=== PATIENT | male | born 1945 | race Caucasian/White ===

== ENCOUNTER → 2016-06-05 | Outpatient (CLI) | payer MEDICARE, BC | LOC: LAB 09:57 | PROVIDERS: ATTEND Radiology Radiation Oncology | DX: C61 Malignant neoplasm of prostate (principal); R97.20 Elevated prostate specific antigen [PSA] | CPT/HCPCS: 36415; 84153 ==

== ENCOUNTER → 2016-08-25 | Outpatient (CLI) | payer MEDICARE, BC | LOC: LAB 10:42 | PROVIDERS: ATTEND Radiology Radiation Oncology | DX: C61 Malignant neoplasm of prostate (principal); R97.20 Elevated prostate specific antigen [PSA] | CPT/HCPCS: 36415; 84153 ==

== ENCOUNTER → 2016-11-23 | Outpatient (CLI) | payer MEDICARE, BC | LOC: LAB 10:27 | PROVIDERS: ATTEND Radiology Radiation Oncology | DX: C61 Malignant neoplasm of prostate (principal); R97.20 Elevated prostate specific antigen [PSA] | CPT/HCPCS: 36415; 84153 ==

== ENCOUNTER → 2017-03-03 | Outpatient (CLI) | payer MEDICARE, BC | LOC: LAB 10:33 | PROVIDERS: ATTEND Radiology Radiation Oncology | DX: C61 Malignant neoplasm of prostate (principal); R97.20 Elevated prostate specific antigen [PSA] | CPT/HCPCS: 36415; 84153 ==

== ENCOUNTER → 2017-05-31 | Outpatient (CLI) | payer MEDICARE, BC | LOC: LAB 10:04 | PROVIDERS: ATTEND Radiology Radiation Oncology | DX: C61 Malignant neoplasm of prostate (principal) | CPT/HCPCS: 36415; 84153 ==

== ENCOUNTER → 2017-06-24 | Outpatient (CLI) | payer MEDICARE, BC ==
--- NOTE | 2017-06-25 18:34 | WOMENS IMAGING REPORT ---
EXAM DESCRIPTION: 3D DX MAMMO BILAT; U/S BREAST UNILAT LIMITED COMPLETED DATE/TIME: 06/24/2017 9:27 am; 06/24/2017 10:06 am REASON FOR STUDY: MASTODYNIA; LEFT BREAST; N64.4 C61 MALIGNANT NEOPLASM OF PROSTATE N64.4 MASTODYN IA COMPARISON: None. TECHNIQUE: Standard craniocaudal and mediolateral oblique views of each breast recorded using digita l acquisition and breast tomosynthesis. Additional left male breast 90 mediolateral view, exaggerated craniocaudad view, and cone compressio n retroareolar region in the CC and MLO orientations. Left breast ultrasound was performed with comparison right male breast imaging with ultrasound LIMITATIONS: None. FINDINGS: RIGHT BREAST MASSES: No suspicious masses. CALCIFICATIONS: No new or suspicious calcifications. ARCHITECTURAL DISTORTION: None. DEVELOPING DENSITY: None. ASYMMETRY: None noted. OTHER: Mild gynecomastia LEFT BREAST MASSES: No suspicious masses. CALCIFICATIONS: No new or suspicious calcifications. ARCHITECTURAL DISTORTION: None. DEVELOPING DENSITY: None. ASYMMETRY: None noted. OTHER: Mild gynecomastia Read with the assistance of CAD: .[facility] - R2 Cenova Version 1.3 .[facility] Imaging - R2 Cenova Version 1.3 .[facility] Imaging - R2 Cenova Version 2.4 .[facility] - R2 Cenova Version 2.4 .[facility] - R2 Podiatry Assistant Version 9.2 Left breast ultrasound: Ultrasound of the left male breast was performed. There is mild left retroa reolar gynecomastia. Comparison ultrasound of the right male breast demonstrates mild right gynecoma stia. IMPRESSION: Bilateral gynecomastia on mammography/tomosynthesis and ultrasound. No worrisome featur es BREAST DENSITY: a. The breasts are almost entirely fatty. BIRAD: 2 Benign findings. RECOMMENDATION: RECOMMENDED FOLLOW UP: Clinical followup for bilateral benign-appearing gynecomastia SPECIFIC INTERVENTION/IMAGING/CONSULTATION RECOMMENDED:No additional intervention/ imaging/consultati on needed at this time. COMMUNICATION:Patient notified by letter COMMENT: The patient has been notified of the results by letter per MQSA requirements. Additional no tification policies are in place for contacting patient with suspicious or incomplete findings. Quality ID #225: The [employer] recommends an annual screening mammogram for women aged 40 years or over. This facility utilizes a reminder system to ensure that all patients receive reminder letters, and/or direct phone calls for appointments. This includes reminders for routine scr eening mammograms, diagnostic mammograms, or other Breast Imaging Interventions when appropriate. Th is patient will be placed in the appropriate reminder system. The [employer] (ACR) has developed recommendations for screening MRI of the breast s in certain patient populations, to be used in conjunction with mammography. Breast MRI surveillanc e may be appropriate for women with more than 20% lifetime risk of developing breast cancer as deter mined by genetic testing, significant family history of the disease, or history of mantle radiation f or Hodgkins Disease. ACR Practice Guidelines 2008. DBT Technology DBT is a type of tomographic mammography. With conventional mammography, overlapping breast tissue ma y make lesions difficult to detect, even with good compression. DBT uses an x-ray tube that rotates a round the breast, taking images at different angles. These images are then combined to create thin sl ices of the breast that the radiologist can view as a 3D reconstruction. The [place] unit can perform full-field digital mammograms (2D imaging); or DBT (3D imaging); or both, in a combination mode that quickly performs both the mammogram and the tomosynthesis scan while the breast is still compressed. PQRS 6045F: Fluoroscopic imaging is not utilized for breast tomosynthesis. TECHNICAL DOCUMENTATION: FINDING NUMBER: (1) ASSESSMENT: (1) JOB ID: [id number] [employer]- All Rights Reserved Reading location - IP/workstation name: [facility]
--- NOTE | 2017-06-25 18:34 | WOMENS IMAGING REPORT ---
EXAM DESCRIPTION: 3D DX MAMMO BILAT; U/S BREAST UNILAT LIMITED COMPLETED DATE/TIME: 06/24/2017 9:27 am; 06/24/2017 10:06 am REASON FOR STUDY: MASTODYNIA; LEFT BREAST; N64.4 C61 MALIGNANT NEOPLASM OF PROSTATE N64.4 MASTODYN IA COMPARISON: None. TECHNIQUE: Standard craniocaudal and mediolateral oblique views of each breast recorded using digita l acquisition and breast tomosynthesis. Additional left male breast 90 mediolateral view, exaggerated craniocaudad view, and cone compressio n retroareolar region in the CC and MLO orientations. Left breast ultrasound was performed with comparison right male breast imaging with ultrasound LIMITATIONS: None. FINDINGS: RIGHT BREAST MASSES: No suspicious masses. CALCIFICATIONS: No new or suspicious calcifications. ARCHITECTURAL DISTORTION: None. DEVELOPING DENSITY: None. ASYMMETRY: None noted. OTHER: Mild gynecomastia LEFT BREAST MASSES: No suspicious masses. CALCIFICATIONS: No new or suspicious calcifications. ARCHITECTURAL DISTORTION: None. DEVELOPING DENSITY: None. ASYMMETRY: None noted. OTHER: Mild gynecomastia Read with the assistance of CAD: .[facility] - R2 Cenova Version 1.3 .[facility] Imaging - R2 Cenova Version 1.3 .[facility] Imaging - R2 Cenova Version 2.4 .[facility] - R2 Cenova Version 2.4 .[facility] - R2 Is Technician Version 9.2 Left breast ultrasound: Ultrasound of the left male breast was performed. There is mild left retroa reolar gynecomastia. Comparison ultrasound of the right male breast demonstrates mild right gynecoma stia. IMPRESSION: Bilateral gynecomastia on mammography/tomosynthesis and ultrasound. No worrisome featur es BREAST DENSITY: a. The breasts are almost entirely fatty. BIRAD: 2 Benign findings. RECOMMENDATION: RECOMMENDED FOLLOW UP: Clinical followup for bilateral benign-appearing gynecomastia SPECIFIC INTERVENTION/IMAGING/CONSULTATION RECOMMENDED:No additional intervention/ imaging/consultati on needed at this time. COMMUNICATION:Patient notified by letter COMMENT: The patient has been notified of the results by letter per MQSA requirements. Additional no tification policies are in place for contacting patient with suspicious or incomplete findings. Quality ID #[id number]: The [employer] recommends an annual screening mammogram for women aged 40 years or over. This facility utilizes a reminder system to ensure that all patients receive reminder letters, and/or direct phone calls for appointments. This includes reminders for routine scr eening mammograms, diagnostic mammograms, or other Breast Imaging Interventions when appropriate. Th is patient will be placed in the appropriate reminder system. The [employer] (ACR) has developed recommendations for screening MRI of the breast s in certain patient populations, to be used in conjunction with mammography. Breast MRI surveillanc e may be appropriate for women with more than 20% lifetime risk of developing breast cancer as deter mined by genetic testing, significant family history of the disease, or history of mantle radiation f or Hodgkins Disease. ACR Practice Guidelines 2008. DBT Technology DBT is a type of tomographic mammography. With conventional mammography, overlapping breast tissue ma y make lesions difficult to detect, even with good compression. DBT uses an x-ray tube that rotates a round the breast, taking images at different angles. These images are then combined to create thin sl ices of the breast that the radiologist can view as a 3D reconstruction. The [employer] unit can perform full-field digital mammograms (2D imaging); or DBT (3D imaging); or both, in a combination mode that quickly performs both the mammogram and the tomosynthesis scan while the breast is still compressed. PQRS 6045F: Fluoroscopic imaging is not utilized for breast tomosynthesis. TECHNICAL DOCUMENTATION: FINDING NUMBER: (1) ASSESSMENT: (1) JOB ID: [id number] [employer]- All Rights Reserved Reading location - IP/workstation name: [facility]
== END ==
LOC: WI 09:03
PROVIDERS: ATTEND Radiology Radiation Oncology
DX: N64.4 Mastodynia (principal); N62 Hypertrophy of breast; C61 Malignant neoplasm of prostate
CPT/HCPCS: 76642; 77066; G0279; 77062

== ENCOUNTER → 2017-10-05 | Outpatient (CLI) | payer MEDICARE, BC | LOC: LAB 08:20 | PROVIDERS: ATTEND Radiology Radiation Oncology | DX: C61 Malignant neoplasm of prostate (principal); R97.20 Elevated prostate specific antigen [PSA] | CPT/HCPCS: 36415; 84153 ==

== ENCOUNTER 2017-11-16 14:12 | Inpatient (IN) | payer MEDICARE, BC ==
[2017-11-16] MEDS ORDERED: NORMAL SALINE 1000 ML 1,000 ML IV ONE ×2 (14:40→18:50)
--- NOTE | 2017-11-16 14:45 | ER Document Report ---
ED Medical Screen (RME) - General Chief Complaint: Nausea/Vomiting/Diarrhea Stated Complaint: NAUSEA, DIARRHEA Time Seen by Provider: 11/16/17 14:38 TRAVEL OUTSIDE OF THE [place]. IN LAST 30 DAYS: No - HPI Notes: 11/16/17 14:44 Patient ate mashed potatoes and other foods approximate 48 hours ago that did not taste well now having nausea vomiting diarrhea patient with a fever in triage slightly tachycardic with a low blood pressure otherwise patient alert and oriented 3 shows no signs of obvious distress complains of no pain - Related Data Allergies/Adverse Reactions: No Known Allergies Allergy (Verified 11/16/17 14:31) Past Medical History - Social History Chew tobacco use (# tins/day): No Frequency of alcohol use: None Drug Abuse: None Renal/ Medical History: Denies: Hx Peritoneal Dialysis Review of Systems - Review of Systems Constitutional: Fever - Nausea vomiting diarrhea Physical Exam - Vital signs Vitals: Temp Pulse Resp BP Pulse Ox 101.2 F H 107 H 16 99/55 L 95 11/16/17 14:22 11/16/17 14:22 11/16/17 14:22 11/16/17 14:22 11/16/17 14:22 - Respiratory Respiratory status: No respiratory distress Chest status: Nontender Breath sounds: Normal Chest palpation: Normal - Abdominal Inspection: Normal Distension: No distension Bowel sounds: Normal Tenderness: Nontender Course - Vital Signs Vital signs: Temp Pulse Resp BP Pulse Ox 101.2 F H 107 H 16 99/55 L 95 11/16/17 14:22 11/16/17 14:22 11/16/17 14:22 11/16/17 14:22 11/16/17 14:22 Doctor's Discharge - Discharge Referrals: CAIN KAY DO [Primary Care Provider] - Follow up as needed
[2017-11-16 15:18] LABS: VENOUS BLOOD HCO3 23.4 mmol/L (20-32); VENOUS BLOOD PCO2 35.1 mmHg (35-63); VENOUS BLOOD PH 7.44 (7.30-7.42)
[2017-11-16 15:21] LABS: HEMATOCRIT 36.7 % (37.9-51.0); HEMOGLOBIN 12.9 g/dL (13.5-17.0); MEAN CORPUSCULAR HEMOGLOBIN 32.8 pg (27.0-33.4); MEAN CORPUSCULAR HGB CONC 35.2 g/dL (32.0-36.0); MEAN CORPUSCULAR VOLUME 93 fl (80-97); PLATELET COUNT 115 10^3/uL (150-450); RED BLOOD COUNT 3.93 10^6/uL (4.35-5.55); RED CELL DISTRIBUTION WIDTH 13.5 % (11.5-14.0); WHITE BLOOD COUNT 9.6 10^3/uL (4.0-10.5)
[2017-11-16 15:23] LABS: INTERNATIONAL RATION (INR) 1.12
--- NOTE | 2017-11-16 15:23 | RADIOLOGY REPORT (SQ) ---
EXAM DESCRIPTION: CHEST 2 VIEWS COMPLETED DATE/TIME: 11/16/2017 3:12 pm REASON FOR STUDY: FEVER COMPARISON: None. EXAM PARAMETERS: NUMBER OF VIEWS: two views TECHNIQUE: Digital Frontal and Lateral radiographic views of the chest acquired. RADIATION DOSE: NA LIMITATIONS: none FINDINGS: LUNGS AND PLEURA: No opacities, masses or pneumothorax. No pleural effusion. MEDIASTINUM AND HILAR STRUCTURES: No masses or contour abnormalities. HEART AND VASCULAR STRUCTURES: Heart normal size. No evidence for failure. BONES: No acute findings. HARDWARE: None in the chest. OTHER: No other significant finding. IMPRESSION: NO ACUTE RADIOGRAPHIC FINDING IN THE CHEST. TECHNICAL DOCUMENTATION: JOB ID: [id number] [employer]- All Rights Reserved Reading location - IP/workstation name: [email or web address]
[2017-11-16 15:44] LABS: ALANINE AMINOTRANSFERASE 19 U/L (21-72); ALBUMIN 3.6 g/dL (3.5-5.0); ALKALINE PHOSPHATASE 55 U/L (38-126); ANION GAP 13 (5-19); ASPARTATE AMINO TRANSFERASE 18 U/L (17-59); BILIRUBIN,DIRECT 0.2 mg/dL (0.0-0.4); BILIRUBIN,TOTAL 0.7 mg/dL (0.2-1.3); BLOOD UREA NITROGEN 23 mg/dL (7-20); CALCIUM 8.4 mg/dL (8.4-10.2); CARBON DIOXIDE 22 mmol/L (22-30); CHLORIDE 102 mmol/L (98-107); GLUCOSE 121 mg/dL (75-110); POTASSIUM 3.4 mmol/L (3.6-5.0); TOTAL PROTEIN 6.7 g/dL (6.3-8.2)
[2017-11-16 16:03] LABS: ABSOLUTE LYMPHOCYTES# (MANUAL) 0.3 10^3/uL (0.5-4.7); ABSOLUTE MONOCYTES # (MANUAL) 0.6 10^3/uL (0.1-1.4); ABSOLUTE NEUTROPHILS# (MANUAL) 8.7 10^3/uL (1.7-8.2); BAND NEUTROPHILS % (MANUAL) 1 % (3-5); BASOPHILS % (MANUAL) 0 % (0-2); EOSINOPHILS % (MANUAL) 0 % (0-6); LYMPHOCYTES % (MANUAL) 3 % (13-45); MONOCYTES % (MANUAL) 6 % (3-13); PLATELET COMMENT DECREASED; SEGMENTED NEUTROPHILS % (MAN) 90 % (42-78); TOTAL CELLS COUNTED 100
[2017-11-16] MEDS ORDERED: ACETAMINOPHEN 325 MG TABLET PO ONE ×2 (16:34→23:20)
[2017-11-16] MEDS ORDERED: RINGERS SOLUTION,LACTATED 1,000 ML IV ONE (16:34)
[2017-11-16] MEDS ORDERED: ONDANSETRON HCL INJ/PF 4 MG/2 ML SDV IV ONE (16:34)
--- NOTE | 2017-11-16 16:34 | ER Document Report ---
ED General - General Mode of Arrival: Ambulatory Information source: Patient TRAVEL OUTSIDE OF THE U.[place]. IN LAST 30 DAYS: No <CHUCHO MACEDO - Last Filed: 11/16/17 17:24> <PEPITO GUERRA - Last Filed: 11/16/17 20:44> <CARMINE ONEIL - Last Filed: 11/16/17 23:18> <RADHA AYALA - Last Filed: 11/17/17 03:29> - General Chief Complaint: Nausea/Vomiting/Diarrhea Stated Complaint: NAUSEA, DIARRHEA Time Seen by Provider: 11/16/17 14:38 Notes: 72-year-old male that presents to the emergency department today with complaints of chills, fevers, and vomiting. Patient states he vomited his dinner up last night, ate breakfast today without any abnormalities, and then vomited again today when eating lunch around 1230. Patient states he takes no medicine, his only past medical history is prostate cancer which he was radiated with radium implants and external beam radiation which cured the malignancy to his knowledge. Patient has had associated diarrhea and chills. ( CHUCHO MACEDO) - Related Data Allergies/Adverse Reactions: No Known Allergies Allergy (Verified 11/16/17 14:31) Past Medical History - General Information source: Patient - Social History Smoking Status: Never Smoker Cigarette use (# per day): No Chew tobacco use (# tins/day): No Frequency of alcohol use: None Drug Abuse: None Lives with: Family Family History: Reviewed & Not Pertinent Patient has suicidal ideation: No Patient has homicidal ideation: No - Medical History Medical History: Negative Surgical Hx: Negative <CHUCHO MACEDO - Last Filed: 11/16/17 17:24> Review of Systems - Review of Systems Constitutional: See HPI, Chills, Fever EENT: No symptoms reported Cardiovascular: No symptoms reported Respiratory: No symptoms reported Gastrointestinal: See HPI, Diarrhea, Vomiting Genitourinary: No symptoms reported Male Genitourinary: No symptoms reported Musculoskeletal: No symptoms reported Skin: No symptoms reported Hematologic/Lymphatic: No symptoms reported Neurological/Psychological: No symptoms reported -: Yes All other systems reviewed and negative <CHUCHO MACEDO - Last Filed: 11/16/17 17:24> Physical Exam <CHUCHO MACEDO - Last Filed: 11/16/17 17:24> <PEPITO GUERRA - Last Filed: 11/16/17 20:44> <CARMINE ONEIL - Last Filed: 11/16/17 23:18> <RADHA AYALA - Last Filed: 11/17/17 03:29> - Vital signs Vitals: Temp Pulse Resp BP Pulse Ox 101.2 F H 107 H 16 99/55 L 95 11/16/17 14:22 11/16/17 14:22 11/16/17 14:22 11/16/17 14:22 11/16/17 14:22 - Notes Notes: Physical Exam: General: Alert, appears well. HEENT: Normocephalic. Atraumatic. PERRL. Extraocular movements intact. Oropharynx clear. Neck: Supple. Non-tender. Respiratory: No respiratory distress. Clear and equal breath sounds bilaterally. Cardiovascular: Regular rate and rhythm. Abdominal: Normal Inspection. Non-tender. No distension. Normal Bowel Sounds. Back: Non-tender. No deformity or step off. Extremities: Moves all four extremities. Upper extremities: Normal inspection. Normal ROM. Lower extremities: Normal inspection. No edema. Normal ROM. Neurological: Normal cognition. AAOx4. Normal speech. Psychological: Normal affect. Normal Mood. Skin: Very warm to the touch. Dry. Normal color. (CHUCHO MACEDO) Course - Laboratory Result Diagrams: 11/16/17 15:00 11/16/17 15:00 <CHUCHO MACEDO - Last Filed: 11/16/17 17:24> - Laboratory Result Diagrams: 11/16/17 15:00 11/16/17 15:00 - EKG Interpretation by [place] EKG shows normal: Sinus rhythm, Aragon, Intervals, QRS Complexes. abnormal: ST-T Waves - Nonspecific inferior T abnormalities Rate: Normal Rhythm: NSR - Transfer of Care Care transferred to following provider: Dr. Ayala <PEPITO GUERRA - Last Filed: 11/16/17 20:44> - Laboratory Result Diagrams: 11/16/17 15:00 11/16/17 15:00 <CARMINE ONEIL - Last Filed: 11/16/17 23:18> - Laboratory Result Diagrams: 11/16/17 15:00 11/16/17 15:00 <RADHA AYALA - Last Filed: 11/17/17 03:29> - Re-evaluation Re-evalutation: 11/16/17 23:13 Rechecked Pt. He denies feeling any better. Informed pt that his labs and urines looked well enough to discharge home but pt does not feel comfortable with going home tonight. Will repeat temperature and order a CT. 11/16/17 23:18 (CARMINE ONEIL) 11/17/17 00:[address] is consistent with colitis. Patient's fever on recheck was 102.2. He is given Tylenol is feeling better. Given the patient's tachycardia, hypotension on presentation, and continued symptoms, he will be referred to the hospitalist service for admission. Patient is very uncomfortable going home as he is still really not feeling very good Started on Cipro Flagyl for colitis. Stable at time of admission. (RADHA AYALA) - Vital Signs Vital signs: Temp Pulse Resp BP Pulse Ox 102.2 F H 107 H 23 H 118/67 96 11/16/17 23:21 11/16/17 14:22 11/16/17 21:01 11/16/17 21:01 11/16/17 21:01 - Laboratory Laboratory results interpreted by me: 11/16/17 11/16/17 11/16/17 15:00 15:00 15:00 RBC 3.93 L Hgb 12.9 L Hct 36.7 L Plt Count 115 L Seg Neuts % (Manual) 90 H Band Neutrophils % 1 L Lymphocytes % (Manual) 3 L Abs Neuts (Manual) 8.7 H Abs Lymphs (Manual) 0.3 L VBG pH 7.44 H Potassium 3.4 L BUN 23 H Creatinine 1.28 H Est GFR (Non-Af Amer) 55 L Glucose 121 H ALT 19 L Urine Protein 11/16/17 20:51 RBC Hgb Hct Plt Count Seg Neuts % (Manual) Band Neutrophils % Lymphocytes % (Manual) Abs Neuts (Manual) Abs Lymphs (Manual) VBG pH Potassium BUN Creatinine Est GFR (Non-Af Amer) Glucose ALT Urine Protein 30 H - Transfer of Care Notes: 11/16/17 20:27 Pending urinalysis and stool for WBCs. Patient will continue receiving IV hydration. (PEPITO GUERRA) Discharge <CHUCHO MACEDO - Last Filed: 11/16/17 17:24> <PEPITO GUERRA - Last Filed: 11/16/17 20:44> <CARMINE ONEIL - Last Filed: 11/16/17 23:18> - Discharge Admitting Provider: [facility] Unit Admitted: Medical Floor <RADHA AYALA - Last Filed: 11/17/17 03:29> - Discharge Clinical Impression: Nausea, vomiting and diarrhea, Dehydration, Colitis Fever Qualifiers: Fever type: unspecified Qualified Code(s): R50.9 - Fever, unspecified Condition: Stable Disposition: ADMITTED INPATIENT Scribe Attestation: 11/16/17 20:27 I personally performed the services described in the documentation, reviewed and edited the documentation which was dictated to the scribe in my presence, and it accurately records my words and actions. (PEPITO GUERRA) 11/17/17 03:29 I personally performed the services described in the documentation, reviewed and edited the documentation which was dictated to the scribe in my presence, and it accurately records my words and actions. (RADHA AYALA) Scribe Documentation - Scribe Written by Scrreee:: Cory De Jesus, 11/16/2017 1734 acting as scribe for :: Zoie <CHUCHO MACEDO - Last Filed: 11/16/17 17:24>
--- NOTE | 2017-11-16 18:43 | EKG REPORT ---
SEVERITY:- ABNORMAL ECG - SINUS RHYTHM NONSPECIFIC T ABNORMALITIES, INFERIOR LEADS : Confirmed by: Jeff Cruz MD 16-Nov-2017 18:42:50
[2017-11-16] MEDS ORDERED: DEXTROSE 5%-LACTATED RINGERS 1,000 ML IV ONE (19:17)
[2017-11-16 21:20] LABS: APPEARANCE,URINE SLIGHTLY-CLOUDY; BILIRUBIN,URINE NEGATIVE (NEGATIVE); COLOR,URINE YELLOW; GLUCOSE, URINE NEGATIVE (NEGATIVE); KETONES,URINE NEGATIVE (NEGATIVE); LEUKOCYTE ESTERASE,URINE NEGATIVE (NEGATIVE); NITRITE,URINE NEGATIVE (NEGATIVE); PROTEIN,URINE 30 mg/dL (NEGATIVE); UROBILINOGEN,URINE NEGATIVE mg/dL (<2.0)
--- NOTE | 2017-11-16 23:51 | RADIOLOGY REPORT (SQ) ---
EXAM DESCRIPTION: CT ABDOMEN PELVIS WITHOUT IV CONTRAST COMPLETED DATE/TME: 11/16/2017 23:17 CLINICAL HISTORY: 72 years Male, fever, diarrhea Comparison: None. Technique: No contrast. Coronal and sagittal reformat. This exam was performed according to our departmental dose-optimization program, which includes automated exposure control, adjustment of the mA and/or kV according to patient size and/or use of iterative reconstruction technique.[facility]: Dose Right [facility]: CareDose [facility]: Dose Right [facility]: Teradose 4D [facility]: Geron LIMITATIONS: None Findings: Gzfk-kq-hpffhczk diffuse bowel wall thickening of the right, transverse, and left colon. There is mild inflammation of surrounding fat. Moderate vacuum disc desiccation between the L3 and S1 levels, 0.5 cm L5 retrolisthesis, atherosclerosis, cholelithiasis including a 1.0 cm calcified rounded stone at the gallbladder neck., mild bilateral perinephric fat stranding, likely bilateral parapelvic cysts measure up to 2.8 cm on the left, no evidence of appendicitis, appendix not discerned. Right upper scrotal clip. Unenhanced lower thorax, abdominopelvic structures, and musculoskeleton appear otherwise grossly unremarkable. Impression: 1. Moderate colitis. Differential etiologies include infectious, inflammatory, and neoplastic processes. 2. Cholelithiasis including a 1.0 cm stone at the gallbladder neck.
[2017-11-17] MEDS ORDERED: ACETAMINOPHEN 325 MG TABLET PO PRN (00:12)
[2017-11-17] MEDS ORDERED: CIPROFLOXACIN 400 MG/D5W RTU 400 MG/200 ML RTUPB IV ONE (00:12)
[2017-11-17] MEDS ORDERED: METRONIDAZOLE 500 MG/NS RTU 500 MG/100 ML RTUPB IV ONE (00:30)
[2017-11-17] MEDS: NORMAL SALINE 1000 ML 1,000 ML IV PRN ×2 (01:07→12:06)
[2017-11-17] MEDS: METRONIDAZOLE 500 MG TABLET PO SCH ×4 (06:07→23:08)
[2017-11-17] MEDS: HEPARIN SOD (PORCINE) 5,000 UNIT/ML 1 ML SYRINGE SUBCUT SCH ×3 (06:07→21:40)
--- NOTE | 2017-11-17 07:30 | PDOC H&P ---
History of Present Illness Admission Date/PCP: 11/17/17 00:[address] [facility] Patient complains of: Nausea vomiting and abdominal pain History of Present Illness: JOSIAH UPTON is a 72 year old male with past medical history of remote prostate cancer with benign follow-up presents with 24 hours of abdominal pain nausea vomiting and diarrhea. He admits fever of 102. Denies suspect meals, recent travel, infectious contacts and otherwise feels well. In the emergency room he is found to have leukocytosis and a CT abdomen pelvis remarkable for diffuse colitis. He started on IV fluid, symptomatic management, empiric antibiotics and referred to the hospitalist for admission. He denies previous episode or new medications. Social History Information Source: Patient Lives with: Family Smoking Status: Never Smoker Frequency of Alcohol Use: None Drugs: None - Advance Directive Resuscitation Status: Full Code Family History Family History: Arthritis Parental Family History Reviewed: Yes Children Family History Reviewed: Yes Sibling(s) Family History Reviewed.: Yes Medication/Allergy Home Medications: No Home Medications 11/16/17 Allergies/Adverse Reactions: No Known Allergies Allergy (Verified 11/16/17 14:31) Review of Systems Constitutional: ABSENT: chills, fever(s), headache(s), weight gain, weight loss Eyes: ABSENT: visual disturbances Ears: ABSENT: hearing changes Cardiovascular: ABSENT: chest pain, dyspnea on exertion, edema, orthropnea, palpitations Respiratory: ABSENT: cough, hemoptysis Gastrointestinal: ABSENT: abdominal pain, constipation, diarrhea, hematemesis, hematochezia, nausea, vomiting Genitourinary: ABSENT: dysuria, hematuria Musculoskeletal: ABSENT: joint swelling Integumentary: ABSENT: rash, wounds Neurological: ABSENT: abnormal gait, abnormal speech, confusion, dizziness, focal weakness, syncope Psychiatric: ABSENT: anxiety, depression, homidical ideation, suicidal ideation Endocrine: ABSENT: cold intolerance, heat intolerance, polydipsia, polyuria Hematologic/Lymphatic: ABSENT: easy bleeding, easy bruising Physical Exam Vital Signs: Temp Pulse Resp BP Pulse Ox 102.2 F H 107 H 18 112/63 100 11/16/17 23:21 11/16/17 14:22 11/17/17 05:01 11/17/17 05:01 11/17/17 05:01 Intake & Output 11/15/17 11/16/17 11/17/17 11:59 11:59 11:59 Intake Total 800 Balance 800 General appearance: PRESENT: no acute distress, well-developed, well-nourished Head exam: PRESENT: atraumatic, normocephalic Eye exam: PRESENT: conjunctiva pink, EOMI, PERRLA. ABSENT: scleral icterus Ear exam: PRESENT: normal external ear exam Mouth exam: PRESENT: moist, tongue midline Neck exam: ABSENT: carotid bruit, JVD, lymphadenopathy, thyromegaly Respiratory exam: PRESENT: clear to auscultation myron. ABSENT: rales, rhonchi, wheezes Cardiovascular exam: PRESENT: RRR. ABSENT: diastolic murmur, rubs, systolic murmur Pulses: PRESENT: normal dorsalis pedis pul Vascular exam: PRESENT: normal capillary refill GI/Abdominal exam: PRESENT: hyperactive bowel sounds, normal bowel sounds, soft , tenderness. ABSENT: distended, guarding, mass, organolmegaly, rebound Rectal exam: PRESENT: deferred Extremities exam: PRESENT: full ROM. ABSENT: calf tenderness, clubbing, pedal edema Neurological exam: PRESENT: alert, awake, oriented to person, oriented to place , oriented to time, oriented to situation, CN II-XII grossly intact. ABSENT: motor sensory deficit Psychiatric exam: PRESENT: appropriate affect, normal mood. ABSENT: homicidal ideation, suicidal ideation Skin exam: PRESENT: dry, intact, warm. ABSENT: cyanosis, rash Results Impressions: Chest X-Ray 11/16/17 14:39 IMPRESSION: NO ACUTE RADIOGRAPHIC FINDING IN THE CHEST. Assessment & Plan - Diagnosis (1) Colitis Is this a current diagnosis for this admission?: Yes Plan: Unclear cause possibly viral, bowel rest, IV fluids, Flagyl and Cipro. Follow- up stool studies and CBC (2) Dehydration Is this a current diagnosis for this admission?: Yes Plan: IV fluid challenge, orthostatic blood pressures (3) Fever Qualifiers: Fever type: unspecified Qualified Code(s): R50.9 - Fever, unspecified Is this a current diagnosis for this admission?: Yes Plan: Secondary to #1 (4) Nausea, vomiting and diarrhea Is this a current diagnosis for this admission?: Yes Plan: Secondary to #1 - Time Time Spent: 30 to 50 Minutes
[2017-11-17 07:52] LABS: ANION GAP 9 (5-19); BLOOD UREA NITROGEN 15 mg/dL (7-20); CALCIUM 7.9 mg/dL (8.4-10.2); CARBON DIOXIDE 23 mmol/L (22-30); CHLORIDE 107 mmol/L (98-107); GLUCOSE 101 mg/dL (75-110); POTASSIUM 3.6 mmol/L (3.6-5.0)
[2017-11-17 08:09] LABS: ABSOLUTE LYMPHOCYTES (AUTO) 0.5 10^3/uL (0.5-4.7); ABSOLUTE MONOCYTES (AUTO) 0.5 10^3/uL (0.1-1.4); ABSOLUTE NEUT (AUTO) 4.8 10^3/uL (1.7-8.2); BASOPHILS % (AUTO) 0.1 % (0-2); HEMATOCRIT 34.3 % (37.9-51.0); HEMOGLOBIN 12.2 g/dL (13.5-17.0); LYMPHOCYTES % (AUTO) 8.7 % (13-45); MEAN CORPUSCULAR HEMOGLOBIN 33.5 pg (27.0-33.4); MEAN CORPUSCULAR HGB CONC 35.5 g/dL (32.0-36.0); MEAN CORPUSCULAR VOLUME 94 fl (80-97); MONOCYTES % (AUTO) 8.4 % (3-13); RED BLOOD COUNT 3.63 10^6/uL (4.35-5.55); RED CELL DISTRIBUTION WIDTH 13.8 % (11.5-14.0); SEGMENTED NEUTROPHILS % (AUTO) 82.8 % (42-78); TOTAL CELLS COUNTED % (AUTO) 100 %; WHITE BLOOD COUNT 5.8 10^3/uL (4.0-10.5)
[2017-11-17 08:39] LABS: PLATELET COUNT 89 10^3/uL (150-450)
[2017-11-17] MEDS: CIPROFLOXACIN 200 MG/D5W RTU 200 MG/100 ML RTUPB IV SCH ×2 (10:16→21:47)
--- NOTE | 2017-11-17 21:23 | PDOC PROGRESS REPORT ---
Subjective Progress Note for:: 11/17/17 Subjective:: 72-year-old male with a past medical history significant for prostate cancer, presenting with abdominal pain nausea vomiting and diarrhea. He was admitted with a fever of 102. He does describe eating at 2 restaurants recently in the 1 -2 days prior to becoming ill. States that he first became sick to his stomach on Wednesday. States that he had some questionable meatloaf at a diner prior to this. Patient is in pleasant mood today, and describes improvement in his abdominal discomfort. He does describe improvement in his appetite today. We will continue to advance his diet. C. difficile testing came back negative. Stool culture pending at present. He is continued on IV Flagyl and IV Cipro at present. CT scan was consistent with a diffuse colitis, possible infectious etiology. Reason For Visit: NAUSEA VOMITING COLITIS Physical Exam Vital Signs: Temp Pulse Resp BP Pulse Ox 97.9 F 67 16 110/61 98 11/17/17 10:42 11/17/17 10:42 11/17/17 10:42 11/17/17 10:42 11/17/17 10:42 Intake & Output 11/16/17 11/17/17 11/18/17 06:59 06:59 06:59 Intake Total 800 1641 Balance 800 1641 Weight 92.079 kg General appearance: PRESENT: no acute distress, obese. ABSENT: mild distress Head exam: PRESENT: atraumatic, normocephalic Eye exam: PRESENT: EOMI. ABSENT: conjunctival injection, nystagmus Ear exam: PRESENT: normal external ear exam. ABSENT: bleeding Mouth exam: PRESENT: moist, neck supple. ABSENT: dry mucosa Throat exam: ABSENT: post pharyngeal erythema, tonsillar exudate Neck exam: ABSENT: carotid bruit, tenderness, thyromegaly Respiratory exam: ABSENT: accessory muscle use, rales, rhonchi, unlabored, wheezes Cardiovascular exam: PRESENT: RRR, +S1, +S2 Pulses: PRESENT: normal carotid pulses, normal dorsalis pedis pul GI/Abdominal exam: ABSENT: ascites, mass, rigid, tenderness Extremities exam: ABSENT: calf tenderness, joint swelling Musculoskeletal exam: PRESENT: ambulatory, full ROM Neurological exam: PRESENT: alert, awake, oriented to person, oriented to place , oriented to time, oriented to situation, CN II-XII grossly intact Psychiatric exam: ABSENT: agitated, flat affect Focused psych exam: ABSENT: catatonic, paranoid Skin exam: ABSENT: abrasion, mottled Results Laboratory Results: 11/17/17 06:59 11/17/17 06:59 11/17/17 11/17/17 06:59 06:59 WBC 5.8 RBC 3.63 L Hgb 12.2 L Hct 34.3 L MCV 94 MCH 33.5 H MCHC 35.5 RDW 13.8 Plt Count 89 L Seg Neutrophils % 82.8 H Lymphocytes % 8.7 L Monocytes % 8.4 Eosinophils % 0.0 Basophils % 0.1 Absolute Neutrophils 4.8 Absolute Lymphocytes 0.5 Absolute Monocytes 0.5 Absolute Eosinophils 0.0 Absolute Basophils 0.0 Sodium 139.0 Potassium 3.6 Chloride 107 Carbon Dioxide 23 Anion Gap 9 BUN 15 Creatinine 0.97 Est GFR ( Amer) > 60 Est GFR (Non-Af Amer) > 60 Glucose 101 Calcium 7.9 L Impressions: Chest X-Ray 11/16/17 14:39 IMPRESSION: NO ACUTE RADIOGRAPHIC FINDING IN THE CHEST. Assessment & Plan - Diagnosis (1) Colitis Is this a current diagnosis for this admission?: Yes Plan: Back this is secondary to recent food poisoning. CT scan consistent with diffuse colitis picture. Likely infectious etiology. Continue empiric IV Flagyl and Cipro at present. Continue supportive IV fluids. (2) Dehydration Is this a current diagnosis for this admission?: Yes Plan: Continue supportive IV fluids at present. (3) Fever Qualifiers: Fever type: unspecified Qualified Code(s): R50.9 - Fever, unspecified Is this a current diagnosis for this admission?: Yes Plan: Fever improving with empiric antibiotics and tylenol (4) Nausea, vomiting and diarrhea Is this a current diagnosis for this admission?: Yes Plan: prn anti emetics as needed. - Inpatient Certification Based on my medical assessment, after consideration of the patient's comorbidities, presenting symptoms, or acuity I expect that the services needed warrant INPATIENT care.: Yes I certify that my determination is in accordance with my understanding of Medicare's requirements for reasonable and necessary INPATIENT services [42 CFR 412.3e].: Yes Medical Necessity: Need Close Monitoring Due to Risk of Patient Decompensation, Need For IV Fluids
[2017-11-18 05:24] LABS: HEMATOCRIT 30.6 % (37.9-51.0); HEMOGLOBIN 11.1 g/dL (13.5-17.0); MEAN CORPUSCULAR HEMOGLOBIN 33.8 pg (27.0-33.4); MEAN CORPUSCULAR HGB CONC 36.3 g/dL (32.0-36.0); MEAN CORPUSCULAR VOLUME 93 fl (80-97); RED CELL DISTRIBUTION WIDTH 13.5 % (11.5-14.0); WHITE BLOOD COUNT 3.8 10^3/uL (4.0-10.5)
[2017-11-18] MEDS: HEPARIN SOD (PORCINE) 5,000 UNIT/ML 1 ML SYRINGE SUBCUT SCH ×2 (05:36→14:35)
[2017-11-18 05:40] LABS: ALBUMIN 2.6 g/dL (3.5-5.0); ANION GAP 8 (5-19); BLOOD UREA NITROGEN 8 mg/dL (7-20); CARBON DIOXIDE 23 mmol/L (22-30); CHLORIDE 110 mmol/L (98-107); GLUCOSE 94 mg/dL (75-110); PHOSPHORUS 2.3 mg/dL (2.5-4.5); POTASSIUM 3.3 mmol/L (3.6-5.0); SODIUM 140.5 mmol/L (137-145)
[2017-11-18] MEDS: METRONIDAZOLE 500 MG TABLET PO SCH ×2 (05:42→12:08)
[2017-11-18 05:57] LABS: PLATELET COUNT 76 10^3/uL (150-450)
[2017-11-18] MEDS: CIPROFLOXACIN 200 MG/D5W RTU 200 MG/100 ML RTUPB IV SCH (10:20)
[2017-11-18] MEDS ORDERED: POTASSIUM CHLORIDE 10 MEQ CAPSULE.ER PO ONE (14:30)
[2017-11-18 14:47] VITALS: BP 99/55
--- NOTE | 2017-11-19 07:28 | PDOC DISCHARGE SUMMARY ---
General - Admit/Disc Date/PCP Admission Date/Primary Care Provider: 11/17/17 08:00 [facility] Discharge Date: 11/18/17 - Discharge Diagnosis (1) Colitis Is this a current diagnosis for this admission?: Yes Summary: likely bacterial gastroenteritis secondary from recent food poisoning (2) Dehydration Is this a current diagnosis for this admission?: Yes (3) Fever Is this a current diagnosis for this admission?: Yes (4) Nausea, vomiting and diarrhea Is this a current diagnosis for this admission?: Yes - Additional Information Resuscitation Status: Full Code Discharge Diet: As Tolerated Discharge Activity: Activity As Tolerated Prescriptions: Ciprofloxacin HCl [Cipro 500 mg Tablet] 500 mg PO BID 10 Days #20 tablet Metronidazole [Flagyl 500 mg Tablet] 500 mg PO TID 10 Days #30 tablet Home Medications: Ciprofloxacin HCl [Cipro 500 mg Tablet] 500 mg PO BID 10 Days #20 tablet Metronidazole [Flagyl 500 mg Tablet] 500 mg PO TID 10 Days #30 tablet 11/18/17 History of Present Illness History of Present Illness: JOSIAH UPTON is a 72 year old male with past medical history of remote prostate cancer with benign follow-up presents with 24 hours of abdominal pain nausea vomiting and diarrhea. He admits fever of 102. Denies suspect meals, recent travel, infectious contacts and otherwise feels well. In the emergency room he is found to have leukocytosis and a CT abdomen pelvis remarkable for diffuse colitis. He started on IV fluid, symptomatic management, empiric antibiotics and referred to the hospitalist for admission. He denies previous episode or new medications. Hospital Course Hospital Course: Patient was found to have a diffuse colitis on CT abd/pelvis. A 1 cm cholelithiasis was noted at gallbladder neck on CT without exam findings consistent with cholecystitis. He was treated with IVF support and IV flagyl and IV ciprofloxacin. He gradually improved, and was able to restart and tolerate a diet. C diff testing was negative. At the time of discharge, there was no positive finding from his stool culture or blood cultures. It is suspected that he had bacterial gastroenteritis from food poisoning on the evening prior to his symptom development. At that time he described eating meatloaf with a "funny taste." Patient will be given a course of flagyl and cipro to finish in outpatient. Followup with his primary doctor was recommended within the next week. At the time of discharge patient had stable vitals, and was ambulating without difficulty. He was instructed to eat yogurt during his antibiotic regiment. Physical Exam Vital Signs: Temp Pulse Resp BP Pulse Ox 97.7 F 70 16 99/55 L 98 11/18/17 14:45 11/18/17 14:45 11/18/17 14:45 11/18/17 14:45 11/18/17 14:45 Intake & Output 11/17/17 11/18/17 11/19/17 06:59 06:59 06:59 Intake Total 100 Balance 100 General appearance: PRESENT: no acute distress, cooperative Head exam: PRESENT: atraumatic, normocephalic Eye exam: PRESENT: EOMI, PERRLA Ear exam: PRESENT: normal external ear exam. ABSENT: bleeding Mouth exam: PRESENT: moist. ABSENT: dry mucosa Throat exam: ABSENT: tonsillar exudate Neck exam: ABSENT: carotid bruit, JVD GI/Abdominal exam: PRESENT: soft. ABSENT: tenderness Musculoskeletal exam: PRESENT: ambulatory, full ROM Neurological exam: PRESENT: alert, oriented to person, oriented to place, oriented to time, oriented to situation Psychiatric exam: ABSENT: agitated, anxious Focused psych exam: ABSENT: catatonic, paranoid Skin exam: ABSENT: abrasion, pallor Results Laboratory Results: blood cultures x2 no growth urine culture no signficant growth stool culture no growth C diff testing was negative. Impressions: Chest X-Ray 11/16/17 14:39 IMPRESSION: NO ACUTE RADIOGRAPHIC FINDING IN THE CHEST. CT Abd/Pelvis: showing a diffuse colitis, possibly infectious. 1 cm cholelithiasis at gallbladder neck found. Qualifiers - * PATIENT BEING DISCHARGED WITH ANY OF THE FOLLOWING DIAGNOSIS: No Plan Discharge Plan: f/u with his PCP in the next 2 weeks. complete his antibiotic course as instructed Time Spent: Greater than 30 Minutes
== END 2017-11-18 15:42 | disposition home or self-care (01) | DRG 392 ==
LOC: ER 14:12 → EH 11-17 00:16 → INTOOBSV 11-17 00:16 → 4W 11-17 10:36 → 5 11-17 17:12 → OBSVTOIN 11-18 08:00
PROVIDERS: ADMIT Internal Medicine; ATTEND Internal Medicine
DX: A05.9 Bacterial foodborne intoxication, unspecified (principal); E86.0 Dehydration; R11.2 Nausea with vomiting, unspecified; Z85.46 Personal history of malignant neoplasm of prostate
CPT/HCPCS: 36415; 71046; 74176; 80048; 80053; 80069; 81001; 82803; 83605; 85025; 85027; 85610; 87040; 87045; 87086; 87205; 87324; 87493; 93005; 93010; 96361; 96374; 99285; G0378; J0744; J2405; J7030

== ENCOUNTER → 2018-04-01 | Outpatient (CLI) | payer MEDICARE, BC | LOC: LAB 10:11 | PROVIDERS: ATTEND Radiology Radiation Oncology | DX: C61 Malignant neoplasm of prostate (principal) | CPT/HCPCS: 36415; 84153 ==

== ENCOUNTER → 2019-06-07 | Outpatient (CLI) | payer MEDICARE, BC ==
[2019-06-07 09:15] LABS: HEMATOCRIT 39.5 % (37.9-51.0); HEMOGLOBIN 14.1 g/dL (13.5-17.0); MEAN CORPUSCULAR HEMOGLOBIN 33.7 pg (27.0-33.4); MEAN CORPUSCULAR HGB CONC 35.6 g/dL (32.0-36.0); MEAN CORPUSCULAR VOLUME 95 fl (80-97); PLATELET COUNT 172 10^3/uL (150-450); RED BLOOD COUNT 4.18 10^6/uL (4.35-5.55); RED CELL DISTRIBUTION WIDTH 13.8 % (11.5-14.0); WHITE BLOOD COUNT 4.3 10^3/uL (4.0-10.5)
[2019-06-07 09:40] LABS: ALBUMIN 4.3 g/dL (3.5-5.0); ALKALINE PHOSPHATASE 66 U/L (38-126); ANION GAP 6 (5-19); ASPARTATE AMINO TRANSFERASE 22 U/L (17-59); BILIRUBIN,TOTAL 0.7 mg/dL (0.2-1.3); BLOOD UREA NITROGEN 12 mg/dL (7-20); CALCIUM 9.2 mg/dL (8.4-10.2); CARBON DIOXIDE 29 mmol/L (22-30); CHLORIDE 105 mmol/L (98-107); CHOLESTEROL 196.31 mg/dL (0-200); GLUCOSE 98 mg/dL (75-110); POTASSIUM 4.4 mmol/L (3.6-5.0); TOTAL PROTEIN 7.7 g/dL (6.3-8.2); TRIGLYCERIDES 57 mg/dL (<150)
[2019-06-07 09:51] LABS: DIRECT LDL 130 mg/dL (<100)
== END ==
LOC: LAB 08:49
PROVIDERS: ATTEND Physician Assistant
DX: I95.9 Hypotension, unspecified (principal); R53.83 Other fatigue; Z12.5 Encounter for screening for malignant neoplasm of prostate; Z13.1 Encounter for screening for diabetes mellitus; Z13.6 Encounter for screening for cardiovascular disorders
CPT/HCPCS: 36415; 84443; 85027; 80053; 83036; 80061; G0103

== ENCOUNTER 2019-12-08 19:56 | Inpatient (IN) | payer MEDICARE, BC ==
[2019-12-08] MEDS ORDERED: DEXAMETHASONE SOD PHOS INJ 10 MG/1 ML VIAL IV ONE (20:45)
[2019-12-08] MEDS ORDERED: CEFTRIAXONE 1 GM/D5W RTU 1 GM/50 ML RTUPB IV ONE (20:46)
--- NOTE | 2019-12-08 20:48 | ER Document Report ---
ED Respiratory Problem - General Chief Complaint: Shortness Of Breath Stated Complaint: SHORTNESS OF BREATH Time Seen by Provider: 12/08/19 20:34 Notes: Patient is a 74-year-old male that comes to the emergency department for chief complaint of difficulty breathing. Patient has had several days of sick symptoms including cough, fevers, shortness of breath. He tested positive with primary care on for COVID-19 although his symptoms significantly worsened tonight. He came by EMS, he was noted to have a fever of 102.9 F, initial oxygen saturation was in the low 80s, he was given 925 mg of Tylenol and 1 L normal saline bolus. Patient was initially placed on 4 L nasal cannula but when he was still hypoxic he was transitioned to a nonrebreather. Patient denies history of COPD, CHF, CAD. He lives at home, takes no daily medications, denies any surgeries, states he has not smoked in several decades (and never did so consistently). TRAVEL OUTSIDE OF THE [place] IN LAST 30 DAYS: No - Related Data Allergies/Adverse Reactions: No Known Allergies Allergy (Verified 11/16/17 14:31) Past Medical History - General Information source: Patient - Social History Smoking Status: Never Smoker Frequency of alcohol use: None Drug Abuse: None Lives with: Family Family History: Other - Arthritis, CAD, DM, Hypertension Renal/ Medical History: Denies: Hx Peritoneal Dialysis - Immunizations Hx Diphtheria, Pertussis, Tetanus Vaccination: Yes Review of Systems - Review of Systems Constitutional: See HPI EENT: No symptoms reported Cardiovascular: See HPI Respiratory: See HPI Gastrointestinal: No symptoms reported Genitourinary: No symptoms reported Male Genitourinary: No symptoms reported Musculoskeletal: No symptoms reported Skin: No symptoms reported Hematologic/Lymphatic: No symptoms reported Neurological/Psychological: No symptoms reported Physical Exam - Vital signs Vitals: Resp Pulse Ox 23 H 96 12/08/19 19:59 12/08/19 19:59 - Notes Notes: GENERAL: Alert; respiratory distress HEAD: Normocephalic, atraumatic. EYES: Pupils equal, round, and reactive to light. Extraocular movements intact. ENT: Oral mucosa moist, tongue midline. Oropharynx unremarkable. Airway patent. NECK: Full range of motion. Supple. Trachea midline. No lymphadenopathy. LUNGS: Rales in bilateral mid to lower lung quintero; respiratory distress with noted tachypnea, labored breathing HEART: Regular rate and rhythm. No murmur ABDOMEN: Soft, non-tender. Non-distended. EXTREMITIES: Moves all 4 extremities spontaneously. No edema, normal radial and dorsalis pedis pulses bilaterally. No cyanosis. BACK: no cervical, thoracic, lumbar midline tenderness. No saddle anesthesia, normal distal neurovascular exam. Moves all extremities in full range of motion. NEUROLOGICAL: Alert and oriented x3. Normal speech. Cranial nerves II through XII grossly intact. Strength 5/5 in all extremities. PSYCH: Normal affect, normal mood. SKIN: Warm, dry, normal turgor. No rashes or lesions noted. Course - Re-evaluation Re-evalutation: 12/08/19 20:48 On my evaluation patient is alert, but in respiratory distress. Patient with labored breathing, hypoxia on room air and on 4 L nasal cannula, patient is on nonrebreather and will be transitioned to BiPAP. Patient with rales throughout all lower lung quintero and still has some tachypnea although he is not in severe respiratory distress. Work-up pending. On BiPAP patient reevaluated and has no tachypnea, respiratory distress has resolved, patient states he feels completely better, no current complaints. Chest x-ray unremarkable, CBC shows leukopenia and thrombocytopenia. Chemistry shows mildly elevated LFTs, BNP borderline, troponin unremarkable. Overall with patient's presentation of fever, COVID positive results, respiratory distress, acute hypoxia I suspect patient is developing pneumonia. Patient has been covered for community-acquired pneumonia, started on Decadron, patient will require hospitalization for his oxygen requirement. I discussed with patient, he states agreement with plan. Discussed with Dr. Mccauley, hospitalist, patient admitted to [facility] full admission. - Vital Signs Vital signs: Temp Pulse Resp BP Pulse Ox 97.8 F 64 16 134/74 H 99 12/09/19 01:45 12/09/19 02:06 12/09/19 03:07 12/09/19 01:45 12/09/19 03:07 - Laboratory Result Diagrams: 12/08/19 20:20 12/08/19 20:20 Laboratory results interpreted by me: 12/08/19 12/08/19 12/08/19 20:20 20:20 20:20 WBC 3.1 L RBC 3.64 L Hgb 11.9 L Hct 33.1 L Plt Count 80 L Lymph % (Auto) 11.4 L Absolute Lymphs (auto) 0.4 L Seg Neutrophils % 80.1 H VBG pH VBG pCO2 Sodium 131.6 L Potassium 3.4 L Glucose 141 H Calcium 7.6 L AST 111 H ALT 72 H NT-Pro-B Natriuret Pep 515 H Total Protein 5.9 L Albumin 3.0 L Urine Protein Urine Ketones Urine Blood Urine Urobilinogen 12/08/19 12/08/19 20:20 22:48 WBC RBC Hgb Hct Plt Count Lymph % (Auto) Absolute Lymphs (auto) Seg Neutrophils % VBG pH 7.50 H VBG pCO2 29.1 L Sodium Potassium Glucose Calcium AST ALT NT-Pro-B Natriuret Pep Total Protein Albumin Urine Protein >=500 H Urine Ketones TRACE H Urine Blood SMALL H Urine Urobilinogen 2.0 H Discharge - Discharge Clinical Impression: Respiratory distress, Hypoxia, COVID-19 Fever Qualifiers: Fever type: due to other condition Qualified Code(s): R50.81 - Fever presenting with conditions classified elsewhere Condition: Stable Disposition: ADMITTED INPATIENT Admitting Provider: Parisa (Hospitalist) Unit Admitted: [facility]
[2019-12-08 21:01] LABS: VENOUS BLOOD BASE EXCESS 0.3 mmol/L; VENOUS BLOOD HCO3 22.3 mmol/L (20-32); VENOUS BLOOD PCO2 29.1 mmHg (35-63); VENOUS BLOOD PH 7.5 (7.30-7.42)
[2019-12-08 21:11] LABS: ALKALINE PHOSPHATASE 46 U/L (38-126); ANION GAP 9 (5-19); ASPARTATE AMINO TRANSFERASE 111 U/L (17-59); BILIRUBIN,DIRECT 0.4 mg/dL (0.0-0.4); BILIRUBIN,TOTAL 0.8 mg/dL (0.2-1.3); BLOOD UREA NITROGEN 15 mg/dL (7-20); CALCIUM 7.6 mg/dL (8.4-10.2); CARBON DIOXIDE 24 mmol/L (22-30); CHLORIDE 99 mmol/L (98-107); GLUCOSE 141 mg/dL (75-110); POTASSIUM 3.4 mmol/L (3.6-5.0); TOTAL PROTEIN 5.9 g/dL (6.3-8.2)
[2019-12-08 21:12] LABS: ABSOLUTE LYMPHOCYTES (AUTO) 0.4 10^3/uL (0.5-4.7); ABSOLUTE MONOCYTES (AUTO) 0.3 10^3/uL (0.1-1.4); ABSOLUTE NEUT (AUTO) 2.5 10^3/uL (1.7-8.2); HEMATOCRIT 33.1 % (37.9-51.0); HEMOGLOBIN 11.9 g/dL (13.5-17.0); LYMPHOCYTES % (AUTO) 11.4 % (13-45); MEAN CORPUSCULAR HEMOGLOBIN 32.7 pg (27.0-33.4); MEAN CORPUSCULAR HGB CONC 35.9 g/dL (32.0-36.0); MEAN CORPUSCULAR VOLUME 91 fl (80-97); MONOCYTES % (AUTO) 8.5 % (3-13); RED BLOOD COUNT 3.64 10^6/uL (4.35-5.55); RED CELL DISTRIBUTION WIDTH 13.7 % (11.5-14.0); SEGMENTED NEUTROPHILS % (AUTO) 80.1 % (42-78); TOTAL CELLS COUNTED % (AUTO) 100 %; WHITE BLOOD COUNT 3.1 10^3/uL (4.0-10.5)
[2019-12-08 21:19] LABS: TROPONIN I 0.018 ng/mL
[2019-12-08 21:33] LABS: PLATELET COUNT 80 10^3/uL (150-450)
--- NOTE | 2019-12-08 21:41 | RADIOLOGY REPORT (SQ) ---
EXAM DESCRIPTION: X-ray, single view of the chest CLINICAL HISTORY: 74 years Male, difficulty breathing, hypoxia, fever COMPARISON: Two views of the chest 11/16/2017 FINDINGS: Lungs: Lung volumes are preserved. No focal consolidation. No pneumothorax or pleural effusion. Mediastinum: Cardiac silhouette appears enlarged but this is probably secondary to AP portable technique. Mild widening of the mediastinum is also most likely technical. Bones: Osseous structures are normal. IMPRESSION: No acute process.
[2019-12-08] MEDS ORDERED: AZITHROMYCIN INJ 500 MG VIAL IV ONE (23:03)
[2019-12-08 23:09] LABS: APPEARANCE,URINE SLIGHTLY-CLOUDY; BILIRUBIN,URINE NEGATIVE (NEGATIVE); COLOR,URINE AMBER; GLUCOSE, URINE NEGATIVE (NEGATIVE); KETONES,URINE TRACE mg/dL (NEGATIVE); LEUKOCYTE ESTERASE,URINE NEGATIVE (NEGATIVE); NITRITE,URINE NEGATIVE (NEGATIVE); PROTEIN,URINE >=500 mg/dL (NEGATIVE); URINE SPECIFIC GRAVITY 1.031
--- NOTE | 2019-12-08 23:34 | PDOC H&P ---
History of Present Illness Admission Date/PCP: 12/08/2019 23:16 Zander Raza PA-C Patient complains of: Dyspnea History of Present Illness: JOSIAH UPTON is a 74 year old male who presented to the emergency room with acute dyspnea. He admits a one-week history of moderate upper respiratory symp toms including a nonproductive cough, intermittent fever and mild dyspnea with exertion which caused him to present to his primary care provider's office for COVID-19 screening yesterday. He was notified today that he was positive for COVID-19. He admits gradually worsening dyspnea becoming severe this evening. His dyspnea this evening was accompanied by a fever of 102.9 F and was noted to become extremely severe with any exertion. He denies other associated or accompanying signs and symptoms. He denies prior similar episodes. He has not identified any additional aggravating or ameliorating factors for his dyspnea. In the emergency room he was found to be severely hypoxic requiring supplemental oxygen and eventually required noninvasive airway pressure support with BiPAP. He was subsequently admitted to the hospital for further evaluation and treatment. Past Medical History Cardiac Medical History: Denies: Atrial Fibrillation, Congestive Heart Failure, Coronary Artery Disease, DVT, Myocardial Infarction, Hyperlipidema, Hypertension, Pulmonary Embolism Pulmonary Medical History: Denies: Asthma, Chronic Obstructive Pulmonary Disease (COPD) EENT Medical History: Denies: Cataracts, Ears - Hearing aids Neurological Medical History: Denies: Hemorrhagic CVA, Ischemic CVA, Seizures Endocrine Medical History: Denies: Diabetes Mellitus Type 1, Diabetes Mellitus Type 2, Hyperthyroidism, Hypothyroidism Renal/ Medical History: Denies: Chronic Kidney Disease, Nephrolithiasis Malignancy Medical History: Reports: None GI Medical History: Reports: Diverticulitis Denies: Cirrhosis, Crohn's Disease, Gastroesophageal Reflux Disease, Hepatitis, Peptic Ulcer Disease, Ulcerative Colitis Musculoskeltal Medical History: Denies: Arthritis, Gout Skin Medical History: Denies: Eczema, Psoriasis Psychiatric Medical History: Denies: Alcohol Dependency, Substance Abuse, Tobacco Dependency Traumatic Medical History: Reports: None Hematology: Denies: Anemia, Bleeding Tendencies Infectious Medical History: Reports: None Past Surgical History Past Surgical History: Reports: None Social History Information Source: Patient Lives with: Alone Smoking Status: Never Smoker Electronic Cigarette use?: No Frequency of Alcohol Use: None Hx Recreational Drug Use: No Drugs: None Hx Prescription Drug Abuse: No - Advance Directive Resuscitation Status: Full Code Surrogate healthcare decision maker:: Gama Cormier Family History Family History: Arthritis, CAD, DM, Hypertension Parental Family History Reviewed: Yes Children Family History Reviewed: No Sibling(s) Family History Reviewed.: Yes Medication/Allergy Allergies/Adverse Reactions: No Known Allergies Allergy (Verified 11/16/17 14:31) Review of Systems Constitutional: PRESENT: as per HPI, chills, fever(s), other - Malaise Eyes: ABSENT: visual disturbances, other - Eye pain Ears: PRESENT: other - Ear pain. ABSENT: hearing changes Nose, Mouth, and Throat: ABSENT: headache(s), sore throat Cardiovascular: PRESENT: as per HPI, dyspnea on exertion. ABSENT: chest pain, palpitations Respiratory: PRESENT: as per HPI, cough, dyspnea. ABSENT: hemoptysis, sputum Gastrointestinal: ABSENT: abdominal pain, constipation, diarrhea, nausea, vomiting Genitourinary: ABSENT: dysuria, hematuria Musculoskeletal: ABSENT: back pain, joint swelling, muscle weakness Integumentary: ABSENT: pruritus, rash Neurological: ABSENT: confusion, convulsions, focal weakness, memory loss, syncope Psychiatric: ABSENT: anxiety, depression Endocrine: ABSENT: cold intolerance, heat intolerance Hematologic/Lymphatic: ABSENT: easy bleeding, easy bruising Allergic/Immunologic: ABSENT: seasonal rhinorrhea Physical Exam Vital Signs: Temp Pulse Resp BP Pulse Ox 99.3 F 92 13 129/65 H 97 12/08/19 20:40 12/08/19 20:40 12/08/19 21:01 12/08/19 21:00 12/08/19 21:01 Intake & Output 12/06/19 12/07/19 12/08/19 23:59 23:59 23:59 Intake Total 50 Balance 50 Weight 92.533 kg General appearance: PRESENT: no acute distress, cooperative, other - On BiPAP at time of exam Head exam: PRESENT: atraumatic, normocephalic Eye exam: PRESENT: conjunctiva pink. ABSENT: conjunctival injection, scleral icterus Ear exam: PRESENT: normal external ear exam. ABSENT: bleeding, drainage Mouth exam: PRESENT: dry mucosa, neck supple Neck exam: ABSENT: thyromegaly, tracheal deviation Respiratory exam: PRESENT: rales - Scattered bibasilar coarse rales, rhonchi - Scattered bilateral central rhonchi, symmetrical, other - On BiPAP at the time of my exam Cardiovascular exam: PRESENT: RRR. ABSENT: clicks, gallop, rubs Pulses: PRESENT: normal radial pulses, normal dorsalis pedis pul Vascular exam: PRESENT: normal capillary refill. ABSENT: pallor GI/Abdominal exam: PRESENT: normal bowel sounds, soft. ABSENT: tenderness Rectal exam: PRESENT: deferred Extremities exam: ABSENT: joint swelling, pedal edema Musculoskeletal exam: ABSENT: deformity, dislocation Neurological exam: PRESENT: alert, oriented to person, oriented to place, o riented to time, oriented to situation, CN II-XII grossly intact. ABSENT: motor sensory deficit Psychiatric exam: PRESENT: appropriate affect, normal mood Skin exam: PRESENT: dry, intact, warm. ABSENT: jaundice, rash, urticaria Results Laboratory Results: 12/08/19 20:20 12/08/19 20:20 12/08/19 12/08/19 12/08/19 20:20 20:20 20:20 WBC 3.1 L RBC 3.64 L Hgb 11.9 L Hct 33.1 L MCV 91 MCH 32.7 MCHC 35.9 RDW 13.7 Plt Count 80 L Seg Neutrophils % 80.1 H VBG pH 7.50 H VBG pCO2 29.1 L VBG HCO3 22.3 VBG Base Excess 0.3 Sodium 131.6 L Potassium 3.4 L Chloride 99 Carbon Dioxide 24 Anion Gap 9 BUN 15 Creatinine 0.90 Est GFR ( Amer) > 60 Glucose 141 H Calcium 7.6 L Total Bilirubin 0.8 AST 111 H Alkaline Phosphatase 46 Total Protein 5.9 L Albumin 3.0 L Urine Color Urine Appearance Urine pH Ur Specific [place] Urine Protein Urine Glucose (UA) Urine Ketones Urine Blood Urine Nitrite Ur Leukocyte Esterase Urine WBC (Auto) Urine RBC (Auto) 12/08/19 22:48 WBC RBC Hgb Hct MCV MCH MCHC RDW Plt Count Seg Neutrophils % VBG pH VBG pCO2 VBG HCO3 VBG Base Excess Sodium Potassium Chloride Carbon Dioxide Anion Gap BUN Creatinine Est GFR ( Amer) Glucose Calcium Total Bilirubin AST Alkaline Phosphatase Total Protein Albumin Urine Color CHAY Urine Appearance SLIGHTLY-CLOUDY Urine pH 5.0 Ur Specific [place] 1.031 Urine Protein >=500 H Urine Glucose (UA) NEGATIVE Urine Ketones TRACE H Urine Blood SMALL H Urine Nitrite NEGATIVE Ur Leukocyte Esterase NEGATIVE Urine WBC (Auto) 3 Urine RBC (Auto) 1 12/08/19 20:20 Troponin I 0.018 NT-Pro-B Natriuret Pep 515 H Impressions: Chest X-Ray 12/08/19 20:45 IMPRESSION: No acute process. Assessment and Plan - Diagnosis (1) Respiratory tract infection due to COVID-19 virus Is this a current diagnosis for this admission?: Yes (2) Acute respiratory failure with hypoxia Is this a current diagnosis for this admission?: Yes (3) Hyponatremia Is this a current diagnosis for this admission?: Yes (4) Hypokalemia Is this a current diagnosis for this admission?: Yes (5) Fever Qualifiers: Fever type: due to other condition Qualified Code(s): R50.81 - Fever presenting with conditions classified elsewhere Is this a current diagnosis for this admission?: Yes - Plan Summary Summary: Patient will be admitted to [facility] where he received routine supportive and symptomatic cares. He will receive IV antibiotics utilizing Rocephin and azithromycin. He will receive supplemental oxygen utilizing BiPAP in order to maintain an adequate oxygen saturation. He will receive Decadron 6 mg initially followed by 2 mg every 8 hours. He received Ativan 1 mg IV every 4 hours as needed for anxiety or restlessness. He received morphine sulfate 2 to 4 mg IV every 2 hours as needed for pain. He will be maintained on a regular diet. He will be given IV fluids utilizing D5 NS with 20 mEq of KCl per liter at 167 mL/h. CBCs, metabolic profiles and additional laboratory and/or radiographic evaluations to be obtained as needed. - Time Time Spent with patient: Less than 15 minutes Medications reviewed and adjusted accordingly: Yes Anticipated Discharge Disposition: Home, Self Care Anticipated Discharge Timeframe: Undetermined - Inpatient Certification Based on my medical assessment, after consideration of the patient's comorbidities, presenting symptoms, or acuity I expect that the services needed warrant INPATIENT care.: Yes I certify that my determination is in accordance with my understanding of Medicare's requirements for reasonable and necessary INPATIENT services [42 CFR 412.3e].: Yes Medical Necessity: Need Close Monitoring Due to Risk of Patient Decompensation, Need For IV Fluids, Need For Continuous Telemetry Monitoring, Need for IV Antibiotics, Risk of Complication if Not Cared For in Hospital, Other - Need for noninvasive airway pressure support and oxygen
[2019-12-08] MEDS ORDERED: ACETAMINOPHEN 325 MG TABLET PO PRN (23:35)
[2019-12-08] MEDS ORDERED: GUAIFENESIN SYRP 200 MG/10 ML UDC PO PRN (23:35)
[2019-12-08] MEDS ORDERED: MORPHINE SULFATE 10 MG/ML INJ IV PRN (23:39)
[2019-12-08] MEDS ORDERED: MAG HYDROX/AL HYDROX/SIMETH SUSP 30 ML UDCUP PO PRN (23:39)
[2019-12-08] MEDS ORDERED: MAGNESIUM HYDROXIDE SUSP 30 ML UDCUP PO PRN (23:39)
[2019-12-08] MEDS ORDERED: PROMETHAZINE HCL INJ 25 MG/1 ML VIAL IV PRN (23:39)
[2019-12-08] MEDS ORDERED: LORAZEPAM INJ 2 MG/1 ML VIAL IV PRN (23:39)
[2019-12-08] MEDS ORDERED: MELATONIN 5 MG TABLET PO PRN (23:39)
[2019-12-08] MEDS ORDERED: ACETAMINOPHEN 650 MG SUPP.RECT PR PRN (23:39)
[2019-12-09] MEDS ORDERED: MORPHINE SULFATE 10 MG/ML INJ IV PRN ×3 (00:22→00:23)
[2019-12-09] MEDS: FAMOTIDINE INJ/PF 20 MG/2 ML SDV IV SCH ×3 (02:11→21:40)
[2019-12-09] MEDS: POTASSI CL 20 MEQ/D5NS 1L 20 MEQ/1,000 ML RTUINJ IV PRN ×2 (02:12→09:00)
[2019-12-09] MEDS: DEXAMETHASONE SOD PHOSPHATE INJ 4 MG/1 ML VIAL IV SCH ×3 (05:22→21:40)
[2019-12-09] MEDS: HEPARIN SOD (PORCINE) 5,000 UNIT/ML 1 ML VIAL SUBCUT SCH ×2 (05:28→14:23)
[2019-12-09 07:10] LABS: ALBUMIN 3.1 g/dL (3.5-5.0); ALKALINE PHOSPHATASE 44 U/L (38-126); ANION GAP 7 (5-19); ASPARTATE AMINO TRANSFERASE 99 U/L (17-59); BILIRUBIN,DIRECT 0.3 mg/dL (0.0-0.4); BILIRUBIN,TOTAL 0.6 mg/dL (0.2-1.3); BLOOD UREA NITROGEN 15 mg/dL (7-20); CALCIUM 7.6 mg/dL (8.4-10.2); CARBON DIOXIDE 25 mmol/L (22-30); CHLORIDE 103 mmol/L (98-107); GLUCOSE 169 mg/dL (75-110); POTASSIUM 4.1 mmol/L (3.6-5.0); TOTAL PROTEIN 6.1 g/dL (6.3-8.2)
--- NOTE | 2019-12-09 08:26 | EKG REPORT ---
SEVERITY:- ABNORMAL ECG - SINUS RHYTHM NONSPECIFIC T ABNORMALITIES, INFERIOR LEADS : Confirmed by: Jeff Cruz MD 09-Dec-2019 08:26:15
[2019-12-09 08:39] LABS: HEMATOCRIT 35.6 % (37.9-51.0); HEMOGLOBIN 12.7 g/dL (13.5-17.0); MEAN CORPUSCULAR HEMOGLOBIN 32.6 pg (27.0-33.4); MEAN CORPUSCULAR HGB CONC 35.7 g/dL (32.0-36.0); MEAN CORPUSCULAR VOLUME 91 fl (80-97); RED CELL DISTRIBUTION WIDTH 14.1 % (11.5-14.0); WHITE BLOOD COUNT 2.4 10^3/uL (4.0-10.5)
[2019-12-09 09:05] LABS: PLATELET COUNT 82 10^3/uL (150-450)
[2019-12-09] MEDS ORDERED: DOCUSATE SODIUM 100 MG CAPSULE PO SCH (10:00)
[2019-12-09 15:58] LABS: ARTERIAL BLOOD BASE EXCESS -3.4 mmol/L; ARTERIAL BLOOD H2CO3 0.87 mmol/L (1.05-1.35); ARTERIAL BLOOD HCO3 19.5 mmol/L (20-24); ARTERIAL BLOOD O2 SATURATION 92.2 % (94-98); ARTERIAL BLOOD PCO2 28.9 mmHg (35-45); ARTERIAL BLOOD PH 7.45 (7.35-7.45); ARTERIAL BLOOD PO2 59.2 mmHg (80-100); ARTERIAL BLOOD TOTAL CO2 20.4 mmol/L (23-27)
[2019-12-09 16:00] LABS: ABSOLUTE LYMPHOCYTES (AUTO) 0.4 10^3/uL (0.5-4.7); ABSOLUTE MONOCYTES (AUTO) 0.4 10^3/uL (0.1-1.4); ABSOLUTE NEUT (AUTO) 4.4 10^3/uL (1.7-8.2); BASOPHILS % (AUTO) 0.1 % (0-2); HEMATOCRIT 36.2 % (37.9-51.0); HEMOGLOBIN 12.6 g/dL (13.5-17.0); LYMPHOCYTES % (AUTO) 7.3 % (13-45); MEAN CORPUSCULAR HEMOGLOBIN 32.4 pg (27.0-33.4); MEAN CORPUSCULAR HGB CONC 34.9 g/dL (32.0-36.0); MEAN CORPUSCULAR VOLUME 93 fl (80-97); MONOCYTES % (AUTO) 7.6 % (3-13); RED BLOOD COUNT 3.91 10^6/uL (4.35-5.55); RED CELL DISTRIBUTION WIDTH 13.8 % (11.5-14.0); TOTAL CELLS COUNTED % (AUTO) 100 %
[2019-12-09] MEDS ORDERED: PHARMACY COMMUNICATION ORDER MC NR ×2 (16:00→17:30)
[2019-12-09 16:10] LABS: ALKALINE PHOSPHATASE 50 U/L (38-126); ANION GAP 8 (5-19); ASPARTATE AMINO TRANSFERASE 95 U/L (17-59); BILIRUBIN,DIRECT 0.2 mg/dL (0.0-0.4); BILIRUBIN,TOTAL 0.5 mg/dL (0.2-1.3); BLOOD UREA NITROGEN 14 mg/dL (7-20); CARBON DIOXIDE 24 mmol/L (22-30); CHLORIDE 105 mmol/L (98-107); GLUCOSE 136 mg/dL (75-110); POTASSIUM 4.8 mmol/L (3.6-5.0)
[2019-12-09 16:12] LABS: WHITE BLOOD COUNT 5.1 10^3/uL (4.0-10.5)
[2019-12-09 16:16] LABS: PLATELET COUNT 95 10^3/uL (150-450)
--- NOTE | 2019-12-09 16:35 | PDOC PROGRESS REPORT ---
Subjective Progress Note for:: 12/09/19 Subjective:: Patient is anxious, hyperventilating, saying that he has diffuse anterior squeezing chest pain that began suddenly after eating. He calmed down very quickly after talking about his travels around the country and was able to speak in complete sentences within 1 minute of me walking into the room. 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 He notes that he was prescribed Tylenol and Azithromycin x2 days prior to this admission and feels that these actually made him worse. Reason For Visit: RESPIRATORY TRACT INFECTION SECONDARY TO COVID 19 Physical Exam Vital Signs: Temp Pulse Resp BP Pulse Ox 98.2 F 76 32 H 103/57 L 90 L 12/09/19 08:09 12/09/19 14:00 12/09/19 08:09 12/09/19 08:09 12/09/19 10:25 Intake & Output 12/08/19 12/09/19 12/10/19 06:59 06:59 06:59 Intake Total 150 2314 Output Total 300 Balance 150 2013 Weight 93.6 kg Additional comments: General: appears younger than stated age Head: normocephalic, atraumatic Eyes: anicteric sclera ENT: moist mucus memranes, no oropharyngeal erythema/exudate Neck: no lymphadenopathy Lungs: lots of transmitted upper airway sounds that clear somewhat with cough, lungs clear Heart: regular rate and rhythm, no murmurs/rubs/gallops Abdomen: normoactive bowel sounds, distended but soft and non-tender : no CVA tenderness, no suprapubic tenderness Extremities: warm and well perfused, no edema Neuro: A&Ox3 Skin: no rash Results Laboratory Results: 12/08/19 12/08/19 12/08/19 20:20 20:20 20:20 WBC 3.1 L RBC 3.64 L Hgb 11.9 L Hct 33.1 L MCV 91 MCH 32.7 MCHC 35.9 RDW 13.7 Plt Count 80 L Seg Neutrophils % 80.1 H VBG pH 7.50 H VBG pCO2 29.1 L VBG HCO3 22.3 VBG Base Excess 0.3 Sodium 131.6 L Potassium 3.4 L Chloride 99 Carbon Dioxide 24 Anion Gap 9 BUN 15 Creatinine 0.90 Est GFR ( Amer) > 60 Glucose 141 H Calcium 7.6 L Total Bilirubin 0.8 AST 111 H Alkaline Phosphatase 46 Total Protein 5.9 L Albumin 3.0 L Urine Color Urine Appearance Urine pH Ur Specific [place] Urine Protein Urine Glucose (UA) Urine Ketones Urine Blood Urine Nitrite Ur Leukocyte Esterase Urine WBC (Auto) Urine RBC (Auto) 12/08/19 12/09/19 12/09/19 22:48 06:30 06:30 WBC Cancelled RBC Cancelled Hgb Cancelled Hct Cancelled MCV Cancelled MCH Cancelled MCHC Cancelled RDW Cancelled Plt Count Cancelled Seg Neutrophils % VBG pH VBG pCO2 VBG HCO3 VBG Base Excess Sodium 134.7 L Potassium 4.1 Chloride 103 Carbon Dioxide 25 Anion Gap 7 BUN 15 Creatinine 0.75 Est GFR ( Amer) > 60 Glucose 169 H Calcium 7.6 L Total Bilirubin 0.6 AST 99 H Alkaline Phosphatase 44 Total Protein 6.1 L Albumin 3.1 L Urine Color CHAY Urine Appearance SLIGHTLY-CLOUDY Urine pH 5.0 Ur Specific [place] 1.031 Urine Protein >=500 H Urine Glucose (UA) NEGATIVE Urine Ketones TRACE H Urine Blood SMALL H Urine Nitrite NEGATIVE Ur Leukocyte Esterase NEGATIVE Urine WBC (Auto) 3 Urine RBC (Auto) 1 12/09/19 08:25 WBC 2.4 L RBC 3.90 L Hgb 12.7 L Hct 35.6 L MCV 91 MCH 32.6 MCHC 35.7 RDW 14.1 H Plt Count 82 L Seg Neutrophils % VBG pH VBG pCO2 VBG HCO3 VBG Base Excess Sodium Potassium Chloride Carbon Dioxide Anion Gap BUN Creatinine Est GFR ( Amer) Glucose Calcium Total Bilirubin AST Alkaline Phosphatase Total Protein Albumin Urine Color Urine Appearance Urine pH Ur Specific [place] Urine Protein Urine Glucose (UA) Urine Ketones Urine Blood Urine Nitrite Ur Leukocyte Esterase Urine WBC (Auto) Urine RBC (Auto) 12/08/19 20:20 Troponin I 0.018 NT-Pro-B Natriuret Pep 515 H Impressions: Chest X-Ray 12/08/19 20:45 IMPRESSION: No acute process. Assessment and Plan - Plan Summary Summary: Mr. Brian is a 74 year old man who presented on 12/08/2019 with SOB, GAUTAM and fever. He admits to a one-week history of moderate upper respiratory symptoms including a nonproductive cough, intermittent fever and dyspnea with exertion which caused him to present to his primary care provider's office for COVID-19 screening on 12/07/2019. He was notified on 12/08/2019 that he was positive for COVID-19. In the emergency room he was found to be severely hypoxemic requiring supplemental oxygen and eventually required noninvasive airway pressure support with BiPAP. He was subsequently admitted for further evaluation and treatment. Covid-19 Pneumonia: today, he is suddenly worse. It is unclear to me whether patient is anxious and hyperventilating as a result, or if this is cardiac or respiratory in origin. I will recheck CXR, EKG, ABG, CBC, CMP, troponin, lactate now. Unfortunately, patient is refusing to take any medications to help him feel better, but he calmed down considerably after just a short talk with me, which is reassuring. - check CBC with differential, CMP, CK, CRP, and ferritin daily - check PT/INR, PTT, fibrinogen, and D-dimer every other day - dexamethasone 6 mg daily for 10 days or until discharge, whichever is shorter - remdesivir: did not meet inclusion criteria due to clear CXR on admission - DC antibiotics, continue to follow BCx results DVT ppx: Lovenox Code Status: DNR/DNI - Time Time Spent with patient: 35 or more minutes Anticipated Discharge Disposition: Home, Self Care Anticipated Discharge Timeframe: within 72 hours
--- NOTE | 2019-12-09 16:59 | RADIOLOGY REPORT (SQ) ---
EXAM DESCRIPTION: CHEST SINGLE VIEW IMAGES COMPLETED DATE/TIME: 12/09/2019 4:34 pm REASON FOR STUDY: acute SOB, worsening hypoxia COMPARISON: Chest x-ray 12/08/2019. EXAM PARAMETERS: NUMBER OF VIEWS: One view. TECHNIQUE: 2 frontal radiographic view of the chest acquired. RADIATION DOSE: NA LIMITATIONS: None. FINDINGS: LUNGS AND PLEURA: There are faint bilateral airspace opacities, right more than left. No sizable pleural effusion or pneumothorax. MEDIASTINUM AND HILAR STRUCTURES: No masses. Contour normal. HEART AND VASCULAR STRUCTURES: There is cardiomegaly. There is mild interstitial edema. BONES: No acute findings. HARDWARE: None in the chest. IMPRESSION: Cardiomegaly. Mild interstitial edema. Faint bilateral airspace opacities, may be seco ndary to mild pulmonary edema and/or multifocal pneumonia. TECHNICAL DOCUMENTATION: JOB ID: [id number] [employer]- All Rights Reserved Reading location - IP/workstation name: [email or web address]
--- NOTE | 2019-12-09 17:38 | Progress Note ---
Provider Note Provider Note: Repeat EKG unchanged from prior and troponin is trending down. CXR shows interstitial edema versus multifocal PNA. VBG shows respiratory alkalosis and hypoxemia. It's possible that he had flash pulmonary edema. Will DC IV fluids and give Lasix 20 mg IV x1. Start high flow NC. Strict I/O.
[2019-12-09] MEDS ORDERED: FUROSEMIDE INJ/PF 20 MG/2 ML SDV IV ONE (18:00)
[2019-12-09] MEDS: ENOXAPARIN SODIUM INJ 40 MG/0.4 ML DISP.SYRIN SUBCUT SCH (18:12)
--- NOTE | 2019-12-09 20:42 | EKG REPORT ---
SEVERITY:- ABNORMAL ECG - SINUS RHYTHM NONSPECIFIC T ABNORMALITIES, INFERIOR LEADS : Confirmed by: Jeff Cruz MD 09-Dec-2019 20:42:03
[2019-12-09] MEDS ORDERED: CEFTRIAXONE 1 GM/D5W RTU 1 GM/50 ML RTUPB IV SCH (22:00)
[2019-12-09] MEDS ORDERED: AZITHROMYCIN 500 MG in DEXTROSE 5%-WATER 250 ML IV SCH (22:00)
[2019-12-10 04:02] LABS: ABSOLUTE LYMPHOCYTES (AUTO) 0.5 10^3/uL (0.5-4.7); ABSOLUTE MONOCYTES (AUTO) 0.4 10^3/uL (0.1-1.4); ABSOLUTE NEUT (AUTO) 7.5 10^3/uL (1.7-8.2); HEMOGLOBIN 11.9 g/dL (13.5-17.0); LYMPHOCYTES % (AUTO) 5.4 % (13-45); MEAN CORPUSCULAR HEMOGLOBIN 32.8 pg (27.0-33.4); MEAN CORPUSCULAR VOLUME 91 fl (80-97); MONOCYTES % (AUTO) 4.9 % (3-13); PLATELET COUNT 109 10^3/uL (150-450); RED BLOOD COUNT 3.62 10^6/uL (4.35-5.55); RED CELL DISTRIBUTION WIDTH 13.9 % (11.5-14.0); SEGMENTED NEUTROPHILS % (AUTO) 89.7 % (42-78); TOTAL CELLS COUNTED % (AUTO) 100 %; WHITE BLOOD COUNT 8.3 10^3/uL (4.0-10.5)
[2019-12-10 04:07] LABS: PROTHROMBIN TIME 13.4 SEC (11.4-15.4)
[2019-12-10 04:08] LABS: PARTIAL THROMBOPLASTIN TIME 31.8 SEC (23.5-35.8)
[2019-12-10 04:10] LABS: D-DIMER 1.29 ug/mL (0.00-0.50)
[2019-12-10 04:31] LABS: ALBUMIN 2.8 g/dL (3.5-5.0); ALKALINE PHOSPHATASE 48 U/L (38-126); ANION GAP 6 (5-19); ASPARTATE AMINO TRANSFERASE 80 U/L (17-59); BILIRUBIN,DIRECT 0.2 mg/dL (0.0-0.4); BILIRUBIN,TOTAL 0.5 mg/dL (0.2-1.3); BLOOD UREA NITROGEN 19 mg/dL (7-20); C-REACTIVE PROTEIN 55.2 mg/L (<10.0); CARBON DIOXIDE 23 mmol/L (22-30); CHLORIDE 107 mmol/L (98-107); GLUCOSE 137 mg/dL (75-110); POTASSIUM 4.3 mmol/L (3.6-5.0); TOTAL PROTEIN 5.6 g/dL (6.3-8.2)
[2019-12-10] MEDS: DEXAMETHASONE SOD PHOSPHATE INJ 4 MG/1 ML VIAL IV SCH ×3 (06:19→21:58)
[2019-12-10] MEDS: ENOXAPARIN SODIUM INJ 40 MG/0.4 ML DISP.SYRIN SUBCUT SCH (09:09)
[2019-12-10] MEDS: FAMOTIDINE INJ/PF 20 MG/2 ML SDV IV SCH ×2 (09:10→21:58)
--- NOTE | 2019-12-10 14:57 | PDOC PROGRESS REPORT ---
Subjective Progress Note for:: 12/10/19 Subjective:: Patient is resting on high flow nasal canula. Not in extremis but definitely dyspneic Reason For Visit: RESPIRATORY TRACT INFECTION SECONDARY TO COVID 19, Physical Exam Vital Signs: Temp Pulse Resp BP Pulse Ox 97.9 F 83 16 130/70 H 92 12/10/19 10:00 12/10/19 14:00 12/10/19 08:41 12/10/19 08:41 12/10/19 08:41 Intake & Output 12/09/19 12/10/19 12/11/19 06:59 06:59 06:59 Intake Total 150 3714 Output Total 1500 Balance 150 2214 Weight 93.6 kg 95.1 kg General appearance: PRESENT: cooperative, well-developed Head exam: PRESENT: atraumatic, normocephalic Ear exam: PRESENT: normal external ear exam. ABSENT: bleeding, drainage Mouth exam: PRESENT: moist, tongue midline Teeth exam: ABSENT: poor dentation Respiratory exam: PRESENT: rales - Fine rales, symmetrical, unlabored. ABSENT: rhonchi, tachypnea, wheezes Cardiovascular exam: PRESENT: RRR, +S1, +S2. ABSENT: bradycardia, diastolic murmur, irregular rhythm, systolic murmur, tachycardia GI/Abdominal exam: PRESENT: normal bowel sounds, soft. ABSENT: distended, guarding, tenderness Rectal exam: PRESENT: deferred Gentrourinary exam: ABSENT: indwelling catheter Extremities exam: ABSENT: pedal edema Musculoskeletal exam: PRESENT: normal inspection. ABSENT: deformity, dislocation Neurological exam: PRESENT: alert, awake, oriented to person, oriented to place, oriented to time, oriented to situation, CN II-XII grossly intact. ABSENT: alte red Psychiatric exam: PRESENT: appropriate affect. ABSENT: agitated, anxious Focused psych exam: ABSENT: delusional, paranoid, restlessness Results Laboratory Results: 12/10/19 03:46 12/10/19 03:46 12/09/19 12/09/19 12/09/19 15:30 15:40 15:40 WBC 5.1 D RBC 3.91 L Hgb 12.6 L Hct 36.2 L MCV 93 MCH 32.4 MCHC 34.9 RDW 13.8 Plt Count 95 L Seg Neutrophils % 85.0 H Carbonic Acid 0.87 L HCO3/H2CO3 Ratio 22:1 ABG pH 7.45 ABG pCO2 28.9 L ABG pO2 59.2 L ABG HCO3 19.5 L ABG O2 Saturation 92.2 L ABG Base Excess -3.4 FiO2 44% Sodium 136.8 L Potassium 4.8 Chloride 105 Carbon Dioxide 24 Anion Gap 8 BUN 14 Creatinine 0.73 Est GFR ( Amer) > 60 Glucose 136 H Lactic Acid Calcium 8.0 L Magnesium 2.5 H Ferritin Total Bilirubin 0.5 AST 95 H Alkaline Phosphatase 50 C-Reactive Protein Total Protein 6.0 L Albumin 3.0 L 12/09/19 12/09/19 12/09/19 15:40 19:20 21:45 WBC RBC Hgb Hct MCV MCH MCHC RDW Plt Count Seg Neutrophils % Carbonic Acid HCO3/H2CO3 Ratio ABG pH ABG pCO2 ABG pO2 ABG HCO3 ABG O2 Saturation ABG Base Excess FiO2 Sodium Potassium Chloride Carbon Dioxide Anion Gap BUN Creatinine Est GFR ( Amer) Glucose Lactic Acid 2.3 H 2.4 H 2.2 H Calcium Magnesium Ferritin Total Bilirubin AST Alkaline Phosphatase C-Reactive Protein Total Protein Albumin 12/10/19 12/10/19 12/10/19 00:35 03:46 03:46 WBC 8.3 RBC 3.62 L Hgb 11.9 L Hct 33.0 L MCV 91 MCH 32.8 MCHC 36.0 RDW 13.9 Plt Count 109 L Seg Neutrophils % 89.7 H Carbonic Acid HCO3/H2CO3 Ratio ABG pH ABG pCO2 ABG pO2 ABG HCO3 ABG O2 Saturation ABG Base Excess FiO2 Sodium 136.4 L Potassium 4.3 Chloride 107 Carbon Dioxide 23 Anion Gap 6 BUN 19 Creatinine 0.79 Est GFR ( Amer) > 60 Glucose 137 H Lactic Acid 1.7 Calcium 8.0 L Magnesium Ferritin 1000.00 H Total Bilirubin 0.5 AST 80 H Alkaline Phosphatase 48 C-Reactive Protein 55.2 H Total Protein 5.6 L Albumin 2.8 L 12/10/19 03:46 WBC RBC Hgb Hct MCV MCH MCHC RDW Plt Count Seg Neutrophils % Carbonic Acid HCO3/H2CO3 Ratio ABG pH ABG pCO2 ABG pO2 ABG HCO3 ABG O2 Saturation ABG Base Excess FiO2 Sodium Potassium Chloride Carbon Dioxide Anion Gap BUN Creatinine Est GFR ( Amer) Glucose Lactic Acid 1.7 Calcium Magnesium Ferritin Total Bilirubin AST Alkaline Phosphatase C-Reactive Protein Total Protein Albumin 12/08/19 12/09/19 12/09/19 20:20 15:40 15:40 Troponin I 0.018 < 0.012 NT-Pro-B Natriuret Pep 515 H 367 Impressions: Chest X-Ray 12/09/19 00:00 IMPRESSION: Cardiomegaly. Mild interstitial edema. Faint bilateral airspace opacities, may be secondary to mild pulmonary edema and/or multifocal pneumonia. Assessment and Plan - Diagnosis (1) Acute respiratory failure with hypoxia Is this a current diagnosis for this admission?: Yes Plan: Stable on high flow nasal canula. Will try to slowly taper back to room air (2) Respiratory tract infection due to COVID-19 virus Is this a current diagnosis for this admission?: Yes Plan: Remdisivir started. Continue antibiotics, steroids and supplements (3) Leukopenia Qualifiers: Neutropenia type: unspecified Is this a current diagnosis for this admission?: Yes Plan: likely secondary to viral infection. Monitor CBC (4) Elevated liver enzymes Is this a current diagnosis for this admission?: Yes Plan: Secondary to infection. Continue to monitor - Plan Summary Summary: Mr. Brian is a 74 year old man who presented on 12/08/2019 with SOB, GAUTAM and fever. He admits to a one-week history of moderate upper respiratory symptoms including a nonproductive cough, intermittent fever and dyspnea with exertion which caused him to present to his primary care provider's office for COVID-19 screening on 12/07/2019. He was notified on 12/08/2019 that he was positive for COVID-19. In the emergency room he was found to be severely hypoxemic requiring supplemental oxygen and eventually required noninvasive airway pressure support with BiPAP. He was subsequently admitted for further evaluation and treatment. Covid-19 Pneumonia: today, he is suddenly worse. It is unclear to me whether patient is anxious and hyperventilating as a result, or if this is cardiac or respiratory in origin. I will recheck CXR, EKG, ABG, CBC, CMP, troponin, lactate now. Unfortunately, patient is refusing to take any medications to help him feel better, but he calmed down considerably after just a short talk with me, which is reassuring. - check CBC with differential, CMP, CK, CRP, and ferritin daily - check PT/INR, PTT, fibrinogen, and D-dimer every other day - dexamethasone 6 mg daily for 10 days or until discharge, whichever is shorter - remdesivir: did not meet inclusion criteria due to clear CXR on admission - DC antibiotics, continue to follow BCx results DVT ppx: Lovenox Code Status: DNR/DNI - Time Time Spent with patient: 15-24 minutes Medications reviewed and adjusted accordingly: Yes Anticipated Discharge Disposition: Home, Self Care Anticipated Discharge Timeframe: unknown
[2019-12-10] MEDS ORDERED: REMDESIVIR (EUA) 200 MG in NORMAL SALINE 250 ML IV ONE (17:00)
[2019-12-11 01:06] LABS: ARTERIAL BLOOD BASE EXCESS -2.9 mmol/L; ARTERIAL BLOOD H2CO3 0.87 mmol/L (1.05-1.35); ARTERIAL BLOOD HCO3 19.9 mmol/L (20-24); ARTERIAL BLOOD O2 SATURATION 80.7 % (94-98); ARTERIAL BLOOD PCO2 28.8 mmHg (35-45); ARTERIAL BLOOD PH 7.46 (7.35-7.45); ARTERIAL BLOOD PO2 41.6 mmHg (80-100); ARTERIAL BLOOD TOTAL CO2 20.8 mmol/L (23-27)
[2019-12-11 01:09] LABS: ARTERIAL BLOOD FIO2 40L
[2019-12-11] MEDS: DEXAMETHASONE SOD PHOSPHATE INJ 4 MG/1 ML VIAL IV SCH ×3 (05:28→21:51)
[2019-12-11] MEDS: ENOXAPARIN SODIUM INJ 40 MG/0.4 ML DISP.SYRIN SUBCUT SCH (09:49)
[2019-12-11] MEDS: FAMOTIDINE INJ/PF 20 MG/2 ML SDV IV SCH ×2 (09:49→21:51)
[2019-12-11] MEDS: REMDESIVIR (EUA) 100 MG in NORMAL SALINE 250 ML IV SCH (10:14)
--- NOTE | 2019-12-11 22:34 | PDOC PROGRESS REPORT ---
Subjective Progress Note for:: 12/11/19 Subjective:: On BiPap currently. Reports feeling slightly worse then yesterday Reason For Visit: RESPIRATORY TRACT INFECTION SECONDARY TO COVID 19, Physical Exam Vital Signs: Temp Pulse Resp BP Pulse Ox 99.1 F 86 32 H 124/68 94 12/11/19 17:09 12/11/19 19:00 12/11/19 19:44 12/11/19 17:09 12/11/19 17:09 Intake & Output 12/10/19 12/11/19 12/12/19 06:59 06:59 06:59 Intake Total 3714 1327 970 Output Total 5759 888 1692 Balance 2214 652 -30 Weight 95.1 kg 96.5 kg General appearance: PRESENT: cooperative, mild distress, well-developed, other - BiPap mask in place Head exam: PRESENT: atraumatic, normocephalic Ear exam: PRESENT: normal external ear exam. ABSENT: bleeding, drainage Respiratory exam: PRESENT: clear to auscultation myron, tachypnea, unlabored. ABSENT: rales, rhonchi, symmetrical, wheezes Cardiovascular exam: PRESENT: RRR, +S1, +S2. ABSENT: bradycardia, diastolic murmur, irregular rhythm, systolic murmur, tachycardia GI/Abdominal exam: PRESENT: normal bowel sounds, soft. ABSENT: distended, guarding, tenderness Rectal exam: PRESENT: deferred Gentrourinary exam: ABSENT: indwelling catheter Extremities exam: ABSENT: pedal edema Musculoskeletal exam: PRESENT: ambulatory. ABSENT: deformity, dislocation Neurological exam: PRESENT: alert, awake, oriented to person, oriented to place, oriented to time, oriented to situation, CN II-XII grossly intact. ABSENT: altered Psychiatric exam: PRESENT: appropriate affect. ABSENT: agitated, anxious Focused psych exam: ABSENT: delusional, paranoid, restlessness Skin exam: PRESENT: dry, normal color, warm. ABSENT: rash Results Laboratory Results: 12/10/19 03:46 12/10/19 03:46 12/11/19 00:50 Carbonic Acid 0.87 L HCO3/H2CO3 Ratio 22:1 ABG pH 7.46 H ABG pCO2 28.8 L ABG pO2 41.6 L ABG HCO3 19.9 L ABG O2 Saturation 80.7 L ABG Base Excess -2.9 FiO2 40L 12/08/19 12/09/19 12/09/19 20:20 15:40 15:40 Troponin I 0.018 < 0.012 NT-Pro-B Natriuret Pep 515 H 367 Impressions: Chest X-Ray 12/09/19 00:00 IMPRESSION: Cardiomegaly. Mild interstitial edema. Faint bilateral airspace opacities, may be secondary to mild pulmonary edema and/or multifocal pneumonia. Assessment and Plan - Diagnosis (1) Acute respiratory failure with hypoxia Is this a current diagnosis for this admission?: Yes Plan: Slightly more dyspneic requiring BiPaP. (2) Respiratory tract infection due to COVID-19 virus Is this a current diagnosis for this admission?: Yes Plan: Continue Remdisivir, steroids and monitor closely. Continue to wean oxygen as tolerated (3) Leukopenia Qualifiers: Neutropenia type: unspecified Is this a current diagnosis for this admission?: Yes Plan: WBC's normal. Continue to monitor (4) Elevated liver enzymes Is this a current diagnosis for this admission?: Yes Plan: stable. Continue to monitor - Plan Summary Summary: Mr. Brian is a 74 year old man who presented on 12/08/2019 with SOB, GAUTAM and fever. He admits to a one-week history of moderate upper respiratory symptoms including a nonproductive cough, intermittent fever and dyspnea with exertion which caused him to present to his primary care provider's office for COVID-19 screening on 12/07/2019. He was notified on 12/08/2019 that he was positive for COVID-19. In the emergency room he was found to be severely hypoxemic requiring supplemental oxygen and eventually required noninvasive airway pressure support with BiPAP. He was subsequently admitted for further evaluation and treatment. Covid-19 Pneumonia: today, he is suddenly worse. It is unclear to me whether patient is anxious and hyperventilating as a result, or if this is cardiac or respiratory in origin. I will recheck CXR, EKG, ABG, CBC, CMP, troponin, lactate now. Unfortunately, patient is refusing to take any medications to help him feel better, but he calmed down considerably after just a short talk with me, which is reassuring. - check CBC with differential, CMP, CK, CRP, and ferritin daily - check PT/INR, PTT, fibrinogen, and D-dimer every other day - dexamethasone 6 mg daily for 10 days or until discharge, whichever is shorter - remdesivir: did not meet inclusion criteria due to clear CXR on admission - DC antibiotics, continue to follow BCx results DVT ppx: Lovenox Code Status: DNR/DNI - Time Time Spent with patient: 15-24 minutes Smoking Cessation Education: 3 to 10 minutes Medications reviewed and adjusted accordingly: Yes Anticipated Discharge Disposition: Home with Home Health Anticipated Discharge Timeframe: unknown
[2019-12-12] MEDS: DEXAMETHASONE SOD PHOSPHATE INJ 4 MG/1 ML VIAL IV SCH ×3 (05:14→22:31)
[2019-12-12] MEDS: REMDESIVIR (EUA) 100 MG in NORMAL SALINE 250 ML IV SCH (09:50)
[2019-12-12] MEDS: FAMOTIDINE INJ/PF 20 MG/2 ML SDV IV SCH ×2 (09:50→22:31)
[2019-12-12 10:08] LABS: HEMATOCRIT 33.1 % (37.9-51.0); HEMOGLOBIN 11.9 g/dL (13.5-17.0); MEAN CORPUSCULAR HEMOGLOBIN 32.9 pg (27.0-33.4); MEAN CORPUSCULAR VOLUME 92 fl (80-97); RED BLOOD COUNT 3.62 10^6/uL (4.35-5.55); RED CELL DISTRIBUTION WIDTH 14.1 % (11.5-14.0); WHITE BLOOD COUNT 10.6 10^3/uL (4.0-10.5)
[2019-12-12 10:23] LABS: ALBUMIN 2.7 g/dL (3.5-5.0); ALKALINE PHOSPHATASE 68 U/L (38-126); ANION GAP 6 (5-19); ASPARTATE AMINO TRANSFERASE 67 U/L (17-59); BILIRUBIN,DIRECT 0.4 mg/dL (0.0-0.4); BILIRUBIN,TOTAL 1.7 mg/dL (0.2-1.3); BLOOD UREA NITROGEN 27 mg/dL (7-20); CALCIUM 7.7 mg/dL (8.4-10.2); CARBON DIOXIDE 25 mmol/L (22-30); CHLORIDE 104 mmol/L (98-107); GLUCOSE 114 mg/dL (75-110); POTASSIUM 4.4 mmol/L (3.6-5.0); TOTAL PROTEIN 5.7 g/dL (6.3-8.2)
[2019-12-12 10:41] LABS: PLATELET COUNT 55 10^3/uL (150-450)
[2019-12-12 10:44] LABS: ABSOLUTE LYMPHOCYTES# (MANUAL) 0.4 10^3/uL (0.5-4.7); ABSOLUTE MONOCYTES # (MANUAL) 0.7 10^3/uL (0.1-1.4); ANISOCYTOSIS SLIGHT; BASOPHILS % (MANUAL) 0 % (0-2); EOSINOPHILS % (MANUAL) 0 % (0-6); LYMPHOCYTES % (MANUAL) 4 % (13-45); MONOCYTES % (MANUAL) 7 % (3-13); PLATELET COMMENT DECREASED; SEGMENTED NEUTROPHILS % (MAN) 89 % (42-78); TOTAL CELLS COUNTED 100
[2019-12-12 10:46] LABS: OVALOCYTES 1+; POIKILOCYTOSIS 1+; TEAR DROP CELLS SLIGHT
[2019-12-12] MEDS: ENOXAPARIN SODIUM INJ 40 MG/0.4 ML DISP.SYRIN SUBCUT SCH (11:05)
[2019-12-12] MEDS ORDERED: PHARMACY COMMUNICATION ORDER MC NR (11:30)
[2019-12-12 11:53] LABS: INTERNATIONAL RATION (INR) 1.45; PROTHROMBIN TIME 17.8 SEC (11.4-15.4)
[2019-12-12 11:54] LABS: PARTIAL THROMBOPLASTIN TIME 35.3 SEC (23.5-35.8)
--- NOTE | 2019-12-12 12:19 | PDOC PROGRESS REPORT ---
Subjective Progress Note for:: 12/12/19 Subjective:: Patient with acutely worsening respiratory status overnight requiring BiPAP. Morning he notes that he suddenly felt more short of breath and endorses pain on inspiration as well as right lower extremity calf pain. Reason For Visit: RESPIRATORY TRACT INFECTION SECONDARY TO COVID 19 Physical Exam Vital Signs: Temp Pulse Resp BP Pulse Ox 99.4 F 82 33 H 126/71 H 96 12/12/19 08:23 12/12/19 08:23 12/12/19 08:23 12/12/19 08:23 12/12/19 08:23 Intake & Output 12/11/19 12/12/19 12/13/19 06:59 06:59 06:59 Intake Total 1327 1170 Output Total 675 1450 Balance 652 -280 Weight 96.5 kg 96.8 kg Additional comments: General: appears younger than stated age Head: normocephalic, atraumatic Eyes: anicteric sclera ENT: dry mucus memranes, no oropharyngeal erythema/exudate Neck: no lymphadenopathy Lungs: diffuse rhonchi, patient unable to take deep breaths, frequent coughing Heart: regular rate and rhythm, no murmurs/rubs/gallops Abdomen: normoactive bowel sounds, distended but soft and non-tender : no CVA tenderness, no suprapubic tenderness Extremities: warm and well perfused, no edema Neuro: A&Ox2 Skin: no rash Results Laboratory Results: 12/12/19 08:46 12/12/19 08:46 12/12/19 12/12/19 08:46 08:46 WBC 10.6 H RBC 3.62 L Hgb 11.9 L Hct 33.1 L MCV 92 MCH 32.9 MCHC 36.0 RDW 14.1 H Plt Count 55 L Seg Neutrophils % Not Reportable Sodium 134.9 L Potassium 4.4 Chloride 104 Carbon Dioxide 25 Anion Gap 6 BUN 27 H Creatinine 0.84 Est GFR ( Amer) > 60 Glucose 114 H Calcium 7.7 L Magnesium 2.5 H Total Bilirubin 1.7 H AST 67 H Alkaline Phosphatase 68 Total Protein 5.7 L Albumin 2.7 L 12/08/19 12/09/19 12/09/19 20:20 15:40 15:40 Troponin I 0.018 < 0.012 NT-Pro-B Natriuret Pep 515 H 367 Impressions: Chest X-Ray 12/09/19 00:00 IMPRESSION: Cardiomegaly. Mild interstitial edema. Faint bilateral airspace opacities, may be secondary to mild pulmonary edema and/or multifocal pneumonia. Assessment and Plan - Plan Summary Summary: Mr. Brian is a 74 year old man who presented on 12/08/2019 with SOB, GAUTAM and fever. He admits to a one-week history of moderate upper respiratory symptoms including a nonproductive cough, intermittent fever and dyspnea with exertion which caused him to present to his primary care provider's office for COVID-19 screening on 12/07/2019. He was notified on 12/08/2019 that he was positive for COVID-19. In the emergency room he was found to be severely hypoxemic requiring supplemental oxygen and eventually required noninvasive airway pressure support with BiPAP. He was subsequently admitted for further evaluation and treatment. # Acute hypoxemic respiratory failure due to Covid-19 Pneumonia: still requring High Flow NC and occasionally BIPAP. Overnight, on 12/10-12/11 he became suddenly much more hypoxic/tachypnic. He appears worse today and labs are also worsening. - check CBC with differential, CMP, CK, CRP, and ferritin daily - check PT/INR, PTT, fibrinogen, and D-dimer every other day - dexamethasone 6 mg daily for 10 days or until discharge, whichever is shorter - remdesivir: 200 mg intravenously on day 1 followed by 100 mg daily for 5 days total - antibiotics discontinued given negative BCx x2 and no other evidence of bacterial infection at this time # Acute on Chronic Thrombocytopenia: worsening, down from 109 to 55 today. His acute complaints of RLE calf pain and worsening SOB and pain on inspiration are highly concerning for DVT/PE. He is very tachypnic and is developing a respiratory alkalosis, concerning for PE. Constellation of signs/symptoms are concerning for HIT. Extremely elevated D-dimer highly concerning for presence of VTE, with or without HIT. - check duplex US of BLE to rule out DVT, if negative will pursue CTA chest to rule out PE - order HIT antibody (send out test) - DC Lovenox and avoid all heparin products given high level of suspicion - start argatroban (start at 2 mcg/kg/minute, check aPTT Q2H and adjust dose until the steady-state aPTT is 1.5 to 3 times the initial value, not exceeding 100 seconds; dosage should not exceed 10 mcg/kg/minute) # Lactic Acidosis: resolved with IVF # Flash pulmonary edema: due to IVF, which were discontinued. Resolved with Lasix IV. Code Status: DNR/DNI - Time Time Spent with patient: 35 or more minutes Anticipated Discharge Disposition: Home, Self Care Anticipated Discharge Timeframe: >72 hours - Inpatient Certification Medical Necessity: Failure to Improve With Outpatient Therapy, Need For IV Fluids, Need For Continuous Telemetry Monitoring, Risk of Complication if Not Cared For in Hospital, Risk of Diagnosis Which Will Require Inpatient Eval/Care/Monitoring
--- NOTE | 2019-12-12 12:31 | ADVANCED CARE ---
- Diagnosis (1) Acute respiratory failure with hypoxia Diagnosis Current: Yes (2) COVID-19 Diagnosis Current: Yes Resuscitation Status: Do Not Resuscitate Discussion: Mr. Brian has reiterated that his goal is to maintain his independence and high functionality. He wants to keep his code status as DNR/DNI. He does not want "extraordinary measures" to keep him alive if he continues to decline. We discussed at length that he appears to be declining clinically despite maximal medical therapy. I am concerned that he will tire out soon due to tachypnea. Patient is alert, oriented, and has capacity to make medical decisions. He is able to talk to me about his wishes and options, and remains adamant that he does not want intubation or resuscitation if he continues to decline. I have asked him on multiple occasions if it is okay to talk to his family and give them an update, and he keeps saying that he doesn't want to "worry them" but agreed to let me call them today. Time Spent: >30 minutes
[2019-12-12] MEDS ORDERED: NORMAL SALINE 250 ML with ARGATROBAN 250 MG IV PRN ×2 (14:00)
--- NOTE | 2019-12-12 19:46 | RADIOLOGY REPORT (SQ) ---
EXAM DESCRIPTION: US EXTREMITY VEINS BILATERAL COMPLETED DATE/TME: 12/12/2019 00:00 CLINICAL HISTORY: 74 years, Male, elevated d-dimer COMPARISON: None. TECHNIQUE: LIMITATIONS: None. FINDINGS: There is nonocclusive thrombus in the right short saphenous vein. The common femoral, femoral, popliteal, posterior tibial and peroneal veins are patent and compressible bilaterally. Venous Doppler waveforms are unremarkable. IMPRESSION: Superficial thrombus in the right short saphenous vein. No evidence of deep venous thrombosis. copyright 2010 [employer]- All Rights Reserved
[2019-12-13] MEDS: DEXAMETHASONE SOD PHOSPHATE INJ 4 MG/1 ML VIAL IV SCH ×3 (05:18→23:05)
[2019-12-13 06:07] LABS: HEMATOCRIT 31.3 % (37.9-51.0); HEMOGLOBIN 11.4 g/dL (13.5-17.0); MEAN CORPUSCULAR HEMOGLOBIN 32.9 pg (27.0-33.4); MEAN CORPUSCULAR HGB CONC 36.3 g/dL (32.0-36.0); MEAN CORPUSCULAR VOLUME 91 fl (80-97); RED BLOOD COUNT 3.46 10^6/uL (4.35-5.55); RED CELL DISTRIBUTION WIDTH 14.3 % (11.5-14.0); WHITE BLOOD COUNT 11.4 10^3/uL (4.0-10.5)
[2019-12-13 06:27] LABS: ALBUMIN 2.6 g/dL (3.5-5.0); ALKALINE PHOSPHATASE 84 U/L (38-126); ASPARTATE AMINO TRANSFERASE 74 U/L (17-59); BILIRUBIN,DIRECT 0.8 mg/dL (0.0-0.4); BILIRUBIN,TOTAL 2.8 mg/dL (0.2-1.3); CALCIUM 7.8 mg/dL (8.4-10.2); GLUCOSE 125 mg/dL (75-110); POTASSIUM 4.4 mmol/L (3.6-5.0); TOTAL PROTEIN 5.7 g/dL (6.3-8.2)
[2019-12-13 06:30] LABS: ANION GAP 5 (5-19); CARBON DIOXIDE 25 mmol/L (22-30); CHLORIDE 104 mmol/L (98-107)
[2019-12-13 06:44] LABS: BLOOD UREA NITROGEN 48 mg/dL (7-20); C-REACTIVE PROTEIN 181.3 mg/L (<10.0)
[2019-12-13 06:47] LABS: ABSOLUTE MONOCYTES # (MANUAL) 0.1 10^3/uL (0.1-1.4); BASOPHILS % (MANUAL) 0 % (0-2); EOSINOPHILS % (MANUAL) 0 % (0-6); LYMPHOCYTES % (MANUAL) 0 % (13-45); MONOCYTES % (MANUAL) 1 % (3-13); SEGMENTED NEUTROPHILS % (MAN) 99 % (42-78); TOTAL CELLS COUNTED 100
[2019-12-13 06:50] LABS: ANISOCYTOSIS SLIGHT; BURR CELLS 1+; OVALOCYTES SLIGHT
[2019-12-13 06:51] LABS: PLATELET COMMENT DECREASED; SCHISTOCYTES 1+
[2019-12-13 06:52] LABS: POIKILOCYTOSIS 1+
[2019-12-13 06:56] LABS: PLATELET COUNT 21 10^3/uL (150-450)
[2019-12-13] MEDS ORDERED: NORMAL SALINE 1000 ML 1,000 ML IV PRN (07:40)
[2019-12-13] MEDS ORDERED: NORMAL SALINE 1000 ML 1,000 ML IV ONE (07:40)
[2019-12-13 09:41] LABS: PARTIAL THROMBOPLASTIN TIME 74.5 SEC (23.5-35.8)
[2019-12-13] MEDS ORDERED: VANCOMYCIN HCL 0 MG in DEXTROSE 5%-WATER 250 ML IV NR (10:00)
[2019-12-13] MEDS ORDERED: CEFEPIME 2 GM/D5W RTU 2 GM/50 ML RTUPB IV SCH (10:00)
--- NOTE | 2019-12-13 10:10 | Progress Note ---
Provider Note Provider Note: Hematology/Oncology consultation was received. Due to COVID-19 restrictions, chart was reviewed but patient was not physically examined. Patient was discussed with Dr. Little. JOSIAH UPTON is a 74 year old male who was admitted a few days ago with respiratory symptoms and positive COVID-19 infection. He was told in the past that he had low platelet count, and records show that he baseline PLT count has been 75-150 over the past 3 years. His respiratory status has continued to decline during his hospitalization and he is now on BiPAP most of the time. His PLT have dropped and today are only 21. No evidence of active bleeding, No recent medications known to cause acute thrombocytopenia, except heparin products. US of lower extremities was positive for non-occlusive SVT, but no DVT. He was started on argatroban and HIT Ab has been sent, but is still pending. D-dimer has increased considerably over the past few days. Await Fibrinogen level. I reviewed the peripheral blood smear with Dr. Garcia (pathology). There are schistocytes and sammi cells consistent with acute infection/sepsis. Platelets are markedly decreased, but WBCs appear reactive and normal in morphology. Although this picture is most suggestive of acute reactive process due to infection and possible DIC, await fibrinogen levels. A diagnosis of HIT is usually ONLY made in the absence of another possible diagnosis. I believe Sepsis/DIC is more likely than HIT. However, with the superficial thrombosis, I believe it is safer to continue the argatroban and change to Pradaxa once a bit more stable and PLT have increased a bit. Watch closely for evidence of bleeding. I will continue to follow him with you and will examine him once safe to do so. Please feel free to call with any questions or concerns.
[2019-12-13] MEDS: REMDESIVIR (EUA) 100 MG in NORMAL SALINE 250 ML IV SCH (10:53)
[2019-12-13] MEDS: FAMOTIDINE INJ/PF 20 MG/2 ML SDV IV SCH ×2 (10:53→23:06)
[2019-12-13 11:01] LABS: FIBRINOGEN 126 mg/dL (209-497)
[2019-12-13 11:11] LABS: D-DIMER > 20.00 ug/mL (0.00-0.50)
[2019-12-13 11:24] LABS: PATH REVIEW PATHOLOGIST REVIEWED
[2019-12-13 11:50] LABS: ARTERIAL BLOOD BASE EXCESS 0.4 mmol/L; ARTERIAL BLOOD H2CO3 1.06 mmol/L (1.05-1.35); ARTERIAL BLOOD O2 SATURATION 91.5 % (94-98); ARTERIAL BLOOD PCO2 35.2 mmHg (35-45); ARTERIAL BLOOD PH 7.45 (7.35-7.45); ARTERIAL BLOOD PO2 57.8 mmHg (80-100); ARTERIAL BLOOD TOTAL CO2 25.1 mmol/L (23-27)
[2019-12-13 11:51] LABS: ARTERIAL BLOOD FIO2 100%
[2019-12-13] MEDS: CEFEPIME HCL 2 GM in DEXTROSE 5%-WATER 50 ML IV SCH (12:54)
[2019-12-13] MEDS: VANCOMYCIN HCL 1,000 MG in DEXTROSE 5%-WATER 250 ML IV SCH ×2 (12:55→23:05)
--- NOTE | 2019-12-13 14:44 | PDOC PROGRESS REPORT ---
Subjective Progress Note for:: 12/13/19 Subjective:: He is feeling tired and worn out. He is unable to tolerate being off of BIPAP due to severe dyspnea. Reason For Visit: RESPIRATORY TRACT INFECTION SECONDARY TO COVID 19, Physical Exam Vital Signs: Temp Pulse Resp BP Pulse Ox 98.1 F 83 24 H 133/74 H 95 12/13/19 07:43 12/13/19 07:43 12/13/19 11:24 12/13/19 07:43 12/13/19 11:24 Intake & Output 12/12/19 12/13/19 12/14/19 06:59 06:59 06:59 Intake Total 1170 1207 300 Output Total 1450 1100 150 Balance -280 107 150 Weight 96.8 kg 96.8 kg Additional comments: General: severely dyspneic on BIPAP Eyes: anicteric sclera ENT: dry mucus memranes, no oropharyngeal erythema/exudate Neck: no lymphadenopathy Lungs: diffuse rhonchi, patient unable to take deep breaths, frequent coughing Heart: regular rate and rhythm, no murmurs/rubs/gallops Abdomen: normoactive bowel sounds, distended but soft and non-tender : no CVA tenderness, no suprapubic tenderness Extremities: warm and well perfused, no edema Neuro: A&Ox2 Skin: no rash Results Laboratory Results: 12/13/19 04:07 12/13/19 04:07 12/13/19 12/13/19 12/13/19 04:07 04:07 11:10 WBC 11.4 H RBC 3.46 L Hgb 11.4 L Hct 31.3 L MCV 91 MCH 32.9 MCHC 36.3 H RDW 14.3 H Plt Count 21 L* Seg Neutrophils % Not Reportable Carbonic Acid 1.06 HCO3/H2CO3 Ratio 22:1 ABG pH 7.45 ABG pCO2 35.2 ABG pO2 57.8 L ABG HCO3 24.0 ABG O2 Saturation 91.5 L ABG Base Excess 0.4 FiO2 100% Sodium 134.0 L Potassium 4.4 Chloride 104 Carbon Dioxide 25 Anion Gap 5 BUN 48 H D Creatinine 1.17 Est GFR ( Amer) > 60 Glucose 125 H Lactic Acid Calcium 7.8 L Magnesium 2.6 H Ferritin 2210.00 H Total Bilirubin 2.8 H AST 74 H Alkaline Phosphatase 84 C-Reactive Protein 181.3 H Total Protein 5.7 L Albumin 2.6 L Blood Type 12/13/19 12/13/19 11:27 11:36 WBC RBC Hgb Hct MCV MCH MCHC RDW Plt Count Seg Neutrophils % Carbonic Acid HCO3/H2CO3 Ratio ABG pH ABG pCO2 ABG pO2 ABG HCO3 ABG O2 Saturation ABG Base Excess FiO2 Sodium Potassium Chloride Carbon Dioxide Anion Gap BUN Creatinine Est GFR ( Amer) Glucose Lactic Acid 1.9 Calcium Magnesium Ferritin Total Bilirubin AST Alkaline Phosphatase C-Reactive Protein Total Protein Albumin Blood Type A POSITIVE 12/08/19 12/09/19 12/09/19 20:20 15:40 15:40 Troponin I 0.018 < 0.012 NT-Pro-B Natriuret Pep 515 H 367 Impressions: Chest X-Ray 12/09/19 00:00 IMPRESSION: Cardiomegaly. Mild interstitial edema. Faint bilateral airspace opacities, may be secondary to mild pulmonary edema and/or multifocal pneumonia. Venous Doppler Study 12/12/19 00:00 IMPRESSION: Superficial thrombus in the right short saphenous vein. No evidence of deep venous thrombosis. copyright 2010 [employer]- All Rights Reserved Assessment and Plan - Diagnosis (1) Acute respiratory failure with hypoxia Is this a current diagnosis for this admission?: Yes (3) Severe sepsis Is this a current diagnosis for this admission?: Yes (4) DIC (disseminated intravascular coagulation) Is this a current diagnosis for this admission?: Yes - Plan Summary Summary: Mr. Brian is a 74 year old man who presented on 12/08/2019 with SOB, GAUTAM and fever. He admits to a one-week history of moderate upper respiratory symptoms including a nonproductive cough, intermittent fever and dyspnea with exertion which caused him to present to his primary care provider's office for COVID-19 screening on 12/07/2019. He was notified on 12/08/2019 that he was positive for COVID-19. In the emergency room he was found to be severely hypoxemic requiring supplemental oxygen and eventually required noninvasive airway pressure support with BiPAP. He was subsequently admitted for further evaluation and treatment. # Acute hypoxemic respiratory failure due to Covid-19 Pneumonia: still requiring BIPAP. Overnight, on 12/10-12/11 he became much more hypoxic/tachypnic, and has been declining ever since. - check CBC with differential, CMP, CK, CRP, and ferritin daily - check PT/INR, PTT, fibrinogen, and D-dimer every other day - dexamethasone 6 mg daily for 10 days or until discharge, whichever is shorter - remdesivir: 200 mg intravenously on day 1 followed by 100 mg daily for 5 days total - convalescent plasma ordered on 12/12 - antibiotics initially discontinued given BCx x2 on admission showed no growth but, given concern for DIC at this time, will resume broad-spectrum antibiotics with cefepime and vancomycin after repeat blood cultures today # Acute on Chronic Thrombocytopenia: records show that baseline PLT count has been 75-150 over the past 3 years. His respiratory status has continued to decline during his hospitalization and he is now on BiPAP almost continuously throughout the day. His PLT have continued to drop and today are only 21. No evidence of active bleeding and no recent medications known to cause acute thrombocytopenia, except heparin products. US of lower extremities on 12/11 was positive for non-occlusive SVT, but no DVT. He was started on argatroban and HIT Ab was sent on 12/11, but is still pending. D-dimer has increased considerably over the past few days. Fibrinogen level low. Discussed with Hematology (Dr. Petersen) today, who reviewed the peripheral blood smear with Dr. Garcia (pathology). There are schistocytes and sammi cells consistent with acute infection/sepsis. Platelets are markedly decreased, but WBCs appear reactive and normal in morphology, suggestive of acute reactive process due to infection and possible DIC. Dr. Petersen believes Sepsis/DIC is more likely than HIT. However, given the superficial thrombosis, will continue the argatroban for now and watch closely for evidence of bleeding. - Hematology consulted - HIT antibody pending (send out test) - DC Lovenox and avoid all heparin products given suspicion for HIT - continue argatroban ggt for now Code Status: DNR/DNI - Time Time Spent with patient: 35 or more minutes Anticipated Discharge Disposition: Home, Self Care Anticipated Discharge Timeframe: within 72 hours
--- NOTE | 2019-12-13 14:49 | ADVANCED CARE ---
- Diagnosis (1) Acute respiratory failure with hypoxia Diagnosis Current: Yes (2) COVID-19 Diagnosis Current: Yes (3) Severe sepsis Diagnosis Current: Yes (4) DIC (disseminated intravascular coagulation) Diagnosis Current: Yes Resuscitation Status: Do Not Resuscitate Discussion: I spoke with both Mr. Brian himself in person, and his son Grant (in [place]) via phone this morning. Patient/family have been updated on Mr. Brian's worsening respiratory status, increasing fatigue on BIPAP, and inability to tolerate being off of BIPAP for even short periods of time. We also discussed our concern for developing DIC versus HIT at length, and my concern for the development of clots versus bleeding at this time. Mr. Brian has repeatedly stated his wish to pursue comfort care measures should he continue to decline further, and his son is understanding of this, and agrees. We discussed that if he continues to decline, we would transition to comfort care measures, and I am concerned that we are heading there. For now, will continue BIPAP, IV antibiotics, IV steroids, convalescent plasma, and all other measures with the hope of seeing improvement in the next 24 hours. Will reassess again tomorrow morning. CODE STATUS DNR/DNI Medical POA: Grant hinkle Time Spent: >30 minutes
[2019-12-13] MEDS ORDERED: PHARMACY COMMUNICATION ORDER MC SCH ×2 (18:00)
[2019-12-14] MEDS: CEFEPIME HCL 2 GM in DEXTROSE 5%-WATER 50 ML IV SCH (00:34)
[2019-12-14] MEDS: DEXAMETHASONE SOD PHOSPHATE INJ 4 MG/1 ML VIAL IV SCH (05:16)
[2019-12-14 05:24] LABS: HEMATOCRIT 29.3 % (37.9-51.0); HEMOGLOBIN 10.7 g/dL (13.5-17.0); MEAN CORPUSCULAR HEMOGLOBIN 32.9 pg (27.0-33.4); MEAN CORPUSCULAR HGB CONC 36.4 g/dL (32.0-36.0); MEAN CORPUSCULAR VOLUME 90 fl (80-97); RED BLOOD COUNT 3.25 10^6/uL (4.35-5.55); RED CELL DISTRIBUTION WIDTH 14.3 % (11.5-14.0); WHITE BLOOD COUNT 10.8 10^3/uL (4.0-10.5)
[2019-12-14 05:34] LABS: FIBRINOGEN 182 mg/dL (209-497); PARTIAL THROMBOPLASTIN TIME 57.9 SEC (23.5-35.8)
[2019-12-14 05:50] LABS: ALBUMIN 2.4 g/dL (3.5-5.0); ALKALINE PHOSPHATASE 78 U/L (38-126); ANION GAP 5 (5-19); ASPARTATE AMINO TRANSFERASE 40 U/L (17-59); BILIRUBIN,DIRECT 0.7 mg/dL (0.0-0.4); BLOOD UREA NITROGEN 44 mg/dL (7-20); CALCIUM 7.6 mg/dL (8.4-10.2); CARBON DIOXIDE 24 mmol/L (22-30); CHLORIDE 107 mmol/L (98-107); GLUCOSE 120 mg/dL (75-110); POTASSIUM 4.4 mmol/L (3.6-5.0); TOTAL PROTEIN 5.4 g/dL (6.3-8.2)
[2019-12-14 06:01] LABS: C-REACTIVE PROTEIN 161.8 mg/L (<10.0)
[2019-12-14 06:07] LABS: PLATELET COUNT 32 10^3/uL (150-450)
[2019-12-14 06:10] LABS: ABSOLUTE LYMPHOCYTES# (MANUAL) 0.1 10^3/uL (0.5-4.7); ABSOLUTE MONOCYTES # (MANUAL) 0.4 10^3/uL (0.1-1.4); BASOPHILS % (MANUAL) 0 % (0-2); EOSINOPHILS % (MANUAL) 0 % (0-6); LYMPHOCYTES % (MANUAL) 1 % (13-45); MONOCYTES % (MANUAL) 4 % (3-13); SEGMENTED NEUTROPHILS % (MAN) 95 % (42-78); TOTAL CELLS COUNTED 100
[2019-12-14 06:12] LABS: ANISOCYTOSIS SLIGHT; BURR CELLS 1+
[2019-12-14 06:13] LABS: OVALOCYTES SLIGHT; PLATELET COMMENT DECREASED; POIKILOCYTOSIS SLIGHT; SCHISTOCYTES 1+
[2019-12-14 06:31] LABS: D-DIMER > 20.00 ug/mL (0.00-0.50)
[2019-12-14 08:02] VITALS: BP 130/70
[2019-12-14] MEDS ORDERED: MORPHINE SULFATE 10 MG/ML INJ IV PRN ×2 (09:14→11:15)
[2019-12-14] MEDS ORDERED: PANTOPRAZOLE SODIUM 40 MG VIAL IV SCH (10:00)
--- NOTE | 2019-12-14 10:23 | ADVANCED CARE ---
- Diagnosis (1) Acute respiratory failure with hypoxia Diagnosis Current: Yes (2) COVID-19 Diagnosis Current: Yes (3) Severe sepsis Diagnosis Current: Yes (4) DIC (disseminated intravascular coagulation) Diagnosis Current: Yes Resuscitation Status: Comfort Measures Only Discussion: I spoke with both Mr. Brian himself in person, and his son Grant (in [place]) via phone again today. Patient/family have been updated on Mr. Brian's worsening respiratory status, increasing fatigue on BIPAP at 100% FIO2, and inability to tolerate being off of BIPAP for even short periods of time. Mr. Brian is altered today, very sleepy, unable to really carry a conversation at this point. Per the wishes of Mr. Brian as previously stated, and now his only child, Grant Edwards, we will change goals to COMFORT CARE MEASURES ONLY. We will DC BIPAP, start morphine PRN SOB/breathlessness, Ativan PRN anxiety/agitation. Time Spent: >30 minutes
[2019-12-14] MEDS: LORAZEPAM INJ 2 MG/1 ML VIAL IV PRN ×2 (10:39→12:13)
[2019-12-14] MEDS ORDERED: MORPHINE SULFATE 10 MG/ML INJ IV ONE ×2 (10:54→11:14)
[2019-12-14] MEDS ORDERED: LORAZEPAM INJ 2 MG/1 ML VIAL IV ONE ×2 (10:54→11:14)
[2019-12-14] MEDS ORDERED: MORPHINE SULFATE 10 MG/ML INJ ONE (11:15)
[2019-12-14] MEDS ORDERED: LORAZEPAM INJ 2 MG/1 ML VIAL ONE (11:16)
[2019-12-14] MEDS: FAMOTIDINE INJ/PF 20 MG/2 ML SDV IV SCH (11:22)
--- NOTE | 2019-12-14 16:54 | Death Summary ---
Summary Date : 12/14/19 Time of :: 13:00 Autopsy: No Resuscitation Status: Comfort Measures Only - Final Diagnosis (1) Acute respiratory failure with hypoxia Is this a current diagnosis for this admission?: Yes (3) Severe sepsis Is this a current diagnosis for this admission?: Yes (4) DIC (disseminated intravascular coagulation) Is this a current diagnosis for this admission?: Yes Hospital Course:: Mr. Brian was a 74 year old gentleman who presented on 12/08/2019 with SOB, GAUTAM and fever. He had a COVID-19 screening on 12/07/2019. He was notified on 12/08/2019 that he was positive for COVID-19. In the emergency room he was found to be severely hypoxemic requiring supplemental oxygen and eventually required noninvasive airway pressure support with BiPAP. He was subsequently admitted for acute hypoxemic respiratory failure due to Covid-19 Pneumonia. Unfortunately, despite maximal medical treatment, including steroids, remdesivir, and convalescent plasma, he continued to require BIPAP with increasing oxygen levels throughout hospitalization. Hospital course was further complicated by development of DIC in the s/o sepsis due to COVID-19 Pneumonia. Mr. Brian had requested to be DNR/DNI from the beginning, and requested to transition to comfort care measures eventually. His family was understanding and agreeable. He was transitioned to comfort care measures on the morning of 12/14/2019, and was pronounced at 1300 on the same day.
== END 2019-12-14 15:09 | DRG 177 ==
LOC: ER 19:56 → EH 23:19 → 3N 12-09 01:53
PROVIDERS: ADMIT Emergency Medicine; ATTEND Hospitalist
PROC: 5A09357 Assistance with Respiratory Ventilation, Less than 24 Consecutive Hours, Continuous Positive Airway Pressure (ICD-10-PCS; principal; 2019-12-08)
PROC: XW033E5 Introduction of Remdesivir Anti-infective into Peripheral Vein, Percutaneous Approach, New Technology Group 5 (ICD-10-PCS; 2019-12-10)
PROC: XW13325 Transfusion of Convalescent Plasma (Nonautologous) into Peripheral Vein, Percutaneous Approach, New Technology Group 5 (ICD-10-PCS; 2019-12-14)
DX: U07.1 COVID-19 (principal); J96.01 Acute respiratory failure with hypoxia; D65 Disseminated intravascular coagulation [defibrination syndrome]; J12.89 Other viral pneumonia; Z51.5 Encounter for palliative care; Z60.2 Problems related to living alone; Z66 Do not resuscitate; D72.819 Decreased white blood cell count, unspecified; E87.6 Hypokalemia; R94.5 Abnormal results of liver function studies; Z82.61 Family history of arthritis; Z83.3 Family history of diabetes mellitus; Z82.49 Family history of ischemic heart disease and other diseases of the circulatory system
CPT/HCPCS: 36415; 36430; 36600; 71045; 80053; 81001; 82728; 82803; 83605; 83735; 83880; 84484; 85025; 85027; 85379; 85384; 85610; 85730; 86022; 86140; 86900; 86901; 87040; 87070; 93005; 93010; 93970; 94660; 96365; 96375; 99285; J0456; J0692; J0696; J0883; J1100; J1650; J1940; J2060; J2270; J3370; J3480; J3490; J7030; J7050; J7060; S0028